=== PATIENT | female | born 1950 | race African-American/Black ===

== ENCOUNTER 2017-04-14 20:38 | Inpatient (IN) | payer MEDICARE ==
[~2017-04-14] VITALS: Ht 160 cm; Wt 68.9 kg
[~2017-04-14 20:38] MED LIST: ATOR40TA PO; CARV12.52 PO; INSU100I19 SQ; INSU100V11 SQ; LISI-607 PO
[2017-04-15] MEDS ORDERED: DEXAMETHASONE SOD PHOSPHATE 4 MG/ML VIAL IM ONE
--- NOTE | 2017-04-15 | NUR ---
PT C/O SORE THROAT X 3 HOURS FORMULA BOTTLER. PT AOX3 RR EVEN AND UNLABORED. NO SOB NOTED. NAD NOTED. NO NVD AT THIS TIME. PT GOWNED AND PLACED ON MONITOR WAITING FOR MD GRULLON
[2017-04-15 00:06] LABS: BASOPHILS % (AUTO) 0.4 % (0.0-2.0); EOSINOPHILS # (AUTO) 0.2 /CMM (0.0-0.7); EOSINOPHILS % (AUTO) 2.8 % (0.0-6.0); HEMATOCRIT 38 % (33-45); HEMOGLOBIN 12.7 g/dL (11.5-14.8); LYMPHOCYTES # (AUTO) 2.1 /CMM (0.8-4.8); LYMPHOCYTES % (AUTO) 24.9 % (20.0-44.0); MEAN CORPUSCULAR HEMOGLOBIN 32 PG (26.0-33.0); MEAN CORPUSCULAR HGB CONC 34 g/dl (31.0-36.0); MEAN CORPUSCULAR VOLUME 94 fL (82-100); MONOCYTES # (AUTO) 0.5 /CMM (0.1-1.30); MONOCYTES % (AUTO) 6.1 % (2.0-12.0); NEUTROPHILS # (AUTO) 5.8 /CMM (1.8-8.9); NEUTROPHILS % (AUTO) 65.8 % (43.0-81.0); PLATELET COUNT (AUTO) 265 /CMM (150-450); RDW COEFFICIENT OF VARIATION 12.1 (11.5-15.0); RED BLOOD CELL COUNT(AUTO) 4.02 MIL/uL (4.0-5.2); WHITE BLOOD COUNT (AUTO) 8.6 K/uL (4.3-11.0)
[2017-04-15 00:23] LABS: CALCIUM, SERUM 9.2 mg/dL (8.5-10.1); CREATININE 1.3 mg/dL (0.6-1.3); POTASSIUM 3.7 mmol/L (3.5-5.1)
[2017-04-15] MEDS ORDERED: DEXAMETHASONE SOD PHOSPHATE 10 MG/ML VIAL ONE (00:29)
[2017-04-15] MEDS ORDERED: CT SWABBABLE VALVE TRANS SET 1 EA INFUS.SET MC ONE (00:40)
[2017-04-15] MEDS ORDERED: IV NS 0.9% 250 ML IV ONE (00:40)
[2017-04-15] MEDS ORDERED: IOHEXOL-300 100 ML VIAL IV ONE (00:40)
--- NOTE | 2017-04-15 00:50 | NUR ---
PT TO CT.
--- NOTE | 2017-04-15 01:11 | NUR ---
PT RETURNED FROM CT.
--- NOTE | 2017-04-15 01:22 | NUR ---
Maribel alanis in [facility] - 04/15/[address] NORTH [phone]
--- NOTE | 2017-04-15 01:23 | NUR ---
MEENU. MARY ANNE [phone]
--- NOTE | 2017-04-15 01:49 | NUR ---
ISHA BURGER AT BEDSIDE SPEAKING TO PT REGARDING RESULTS
--- NOTE | 2017-04-15 01:59 | NUR ---
LAB AT BEDSIDE FOR BLOOD DRAW
[2017-04-15] MEDS ORDERED: CLINDAMYCIN IV RTU IN D5W 600 MG/50 ML PIGGYBACK IV ONE (02:00)
--- NOTE | 2017-04-15 02:00 | NUR ---
PANEL PAGED PER ER MD ORDER.
--- NOTE | 2017-04-15 02:01 | NUR ---
PT ASSIGNED TO 314-2
--- NOTE | 2017-04-15 02:01 | NUR ---
CALLED DAUGHTER, MARY ANNE TO BRING PT MEDICATION FROM HOME.
[2017-04-15] MEDS ORDERED: CLINDAMYCIN 900 MG/6 ML VIAL ONE (02:09)
[2017-04-15] MEDS ORDERED: *INSULIN REGULAR(HUMULIN R)HUM 100 UNIT/ML VIAL SQ PRN (02:30)
[2017-04-15] MEDS ORDERED: DEXTROSE 50%-WATER 50 ML DISP.SYRIN IV PRN (02:30)
[2017-04-15] MEDS ORDERED: HYDROCODONE/APAP 5/325MG 1 EACH TABLET PO PRN (02:30)
[2017-04-15] MEDS ORDERED: ZOLPIDEM TARTRATE 5 MG TABLET PO PRN (02:30)
[2017-04-15] MEDS ORDERED: ACETAMINOPHEN 325 MG TABLET PO PRN (02:30)
[2017-04-15] MEDS ORDERED: ONDANSETRON HCL/PF 4 MG/2 ML VIAL IVP PRN (02:30)
[2017-04-15] MEDS ORDERED: MAGNESIUM HYDROXIDE 30 ML UDC PO PRN (02:30)
[2017-04-15] MEDS ORDERED: MAG HYDROX/AL HYDROX/SIMETH 30 ML UDC PO PRN (02:30)
[2017-04-15] MEDS ORDERED: Z GUARD REMEDY 2 OZ OINT TP PRN (02:30)
--- NOTE | 2017-04-15 02:30 | NUR ---
PT REASSIGNED TO ICU PER PAYTON, CALLED RN SUP FOR BED
[2017-04-15] MEDS ORDERED: CEFTRIAXONE 1 G VIAL ONE (03:32)
--- NOTE | 2017-04-15 03:56 | NUR ---
REPORT GIVEN TO JAYDEN PRESCOTT FOR LG
--- NOTE | 2017-04-15 05:37 | NUR ---
Patient is resting comfortably in bed with eyes closed. Easily aroused. VSS
--- NOTE | 2017-04-15 07:15 | NUR ---
REPORT GIVEN TO JAYDEN ALANIZ FOR LG
--- NOTE | 2017-04-15 08:45 | NUR ---
REPORT GIVEN TO JAYDEN TAYLOR FOR [facility].
[2017-04-15] MEDS ORDERED: SIMV20TA6 PO (09:35)
--- NOTE | 2017-04-15 09:45 | NUR ---
[facility] RN NOTES ADMITTED THIS PATIENT, DX UVULITIS BY DR. CARRILLO. AAO X 3, ON RA, NO SOB, NOT IN DSITRESS, BREATHING EVEN AND UNLABORED, RAC G18 FLUSHES WELL, SITE CLEAR, TELEMETRY READS SR HR 60, DENIES PAIN. PATIENT WITH VITILIGO, GENERAL, OTHERWISE SKIN IS INTACT. CLEAR DIET, UNIT ORIENTATION DONE AND USE OF CALL LIGHT. SAFETY MEASURES IN PLACE, WILL CONTINUE TO MONITOR.
[2017-04-15 10:00] VITALS: BP 160/90
[2017-04-15] MEDS: DEXAMETHASONE SOD PHOSPHATE 10 MG/ML VIAL IV SCH ×2 (11:12→17:38)
[2017-04-15] MEDS: diphenhydrAMINE HCL 50 MG/ML VIAL IV SCH ×2 (11:12→17:37)
[2017-04-15] MEDS: BLOOD SUGAR DIAGNOSTIC 1 EACH STRIP VI SCH ×3 (11:13→21:51)
[2017-04-15] MEDS: INSULIN REGULAR, HUMAN 100 UNIT/ML 3 ML VIAL SQ PRN ×2 (11:38→16:51)
--- NOTE | 2017-04-15 11:42 | NUR ---
[facility] RN NOTES ACCUCHECK DONE. BS 279 MG/DL ADMINISTERED 9 UNITS HUM R PER SS.
[2017-04-15 12:00] VITALS: BP 157/100
[2017-04-15] MEDS: CEFTRIAXONE 1 G in IV D5W 50 ML IV SCH (12:37)
--- NOTE | 2017-04-15 12:37 | NUR ---
[facility] RN NOTES ROCEPHIN IV STARTED. NOT ADMINISTERED ON TIME, PT ARRIVED TO UNIT AT 100 AM AND MEDICATION JUST DELIVERED.
--- NOTE | 2017-04-15 14:05 | NUR ---
[facility] RN NOTES SEEN BY DR. HORTON.
[2017-04-15 16:00] VITALS: BP 139/84
--- NOTE | 2017-04-15 16:44 | NUR ---
[facility] RN NOTES ACCUCHECK DONE. BS 323 MG/DL ADMINISTERED 12 UNITS HUM R PER SS.
--- NOTE | 2017-04-15 19:02 | NUR ---
[facility] RN CLOSING NOTES PATIENT RESTING COMFORTABLY. NOT IN ANY DISTRESS, ROOM AIR. TELEMETRY READS SR HR 64. DENIES ANY DISCOMFORT. IV ACCESS RAC G 18 INTACT. ALL NEEDS MET. PM CARE RENDERED. CALL LIGHT WITHIN REACH, ALL NEEDS MET. NO OTHER SIGNIFICANT CHANGE IN CONDITION. WILL ENDORSE TO NEXT SHIFT FOR LG.
--- NOTE | 2017-04-15 19:41 | NUR ---
TD RN OPENING RECEIVED CARE OF PATIENT. PATIENT DENIES SOB, DIFFICULTY BREATHING OR PAIN AT THIS TIME. TOLERATING DIET WELL NO COMPLICATIONS NOTED. TELE NSR. PATIENT SITTING IN CHAIR APPEARS STABLE AT THIS TIME. ALL NEEDS IN REACH, BED LOWERED AND LOCKED, RAILS UPX3 FOR SAFETY AND WILL ROUND PRN NEEDED
[2017-04-15 20:00] VITALS: BP 166/81
[2017-04-15 20:31] VITALS: BP 152/85
[2017-04-16] VITALS: BP 133/61
[2017-04-16] MEDS: diphenhydrAMINE HCL 50 MG/ML VIAL IV SCH ×3 (00:13→12:38)
[2017-04-16] MEDS: DEXAMETHASONE SOD PHOSPHATE 10 MG/ML VIAL IV SCH ×3 (00:13→12:38)
[2017-04-16 04:00] VITALS: BP 136/71
--- NOTE | 2017-04-16 06:29 | NUR ---
TD RN CLOSING PATIENT STABLE NO COMPLICATIONS NOTED. ALL DUE MEDS GIVEN AND ALL NEEDS MET. CARE WILL BE ENDORSED TO RN FOR LG. PATIENT NEEDS IN REACH. BED LOWERED AND LOCKED, RAIL SUPX3 FOR SAFETY TELE NSR
--- NOTE | 2017-04-16 07:30 | NUR ---
[facility] RN NOTES RECEIVED PATIENT IN BED, AAO X 3, ON RA, NO SOB, NOT IN DISTRESS, BREATHING EVEN AND UNLABORED, RAC G18 FLUSHES WELL, SITE CLEAR, TELEMETRY READS SR HR 65, DENIES PAIN. PATIENT WITH VITILIGO, GENERAL, OTHERWISE SKIN IS INTACT. CLEAR DIET, CALL LIGHT WITHIN REACH. SAFETY MEASURES IN PLACE, WILL CONTINUE TO MONITOR. Addendum: 04/16/17 at 1349 by BRANDON KEYES RN ADDENDUM MS RN NOTES ACCUCHECK DONE BS 230 MG/DL. ADMINISTERED 6 UNITS HUM R PER SS
[2017-04-16 07:34] LABS: HEMATOCRIT 36 % (33-45); HEMOGLOBIN 12.3 g/dL (11.5-14.8); LYMPHOCYTES # (AUTO) 1.1 /CMM (0.8-4.8); LYMPHOCYTES % (AUTO) 5.8 % (20.0-44.0); MEAN CORPUSCULAR HEMOGLOBIN 33 PG (26.0-33.0); MEAN CORPUSCULAR HGB CONC 34 g/dl (31.0-36.0); MEAN CORPUSCULAR VOLUME 97 fL (82-100); MONOCYTES # (AUTO) 0.4 /CMM (0.1-1.30); MONOCYTES % (AUTO) 2.1 % (2.0-12.0); NEUTROPHILS # (AUTO) 17.3 /CMM (1.8-8.9); NEUTROPHILS % (AUTO) 92.1 % (43.0-81.0); PLATELET COUNT (AUTO) 230 /CMM (150-450); RED BLOOD CELL COUNT(AUTO) 3.73 MIL/uL (4.0-5.2); WHITE BLOOD COUNT (AUTO) 18.8 K/uL (4.3-11.0)
[2017-04-16 08:00] VITALS: BP 167/81
[2017-04-16] MEDS: BLOOD SUGAR DIAGNOSTIC 1 EACH STRIP VI SCH ×2 (08:28→12:32)
[2017-04-16 08:33] LABS: CALCIUM, SERUM 9.4 mg/dL (8.5-10.1); CREATININE 1.2 mg/dL (0.6-1.3); MAGNESIUM 2.1 mg/dL (1.8-2.4); PHOSPHORUS 2.8 mg/dL (2.5-4.9); POTASSIUM 4.2 mmol/L (3.5-5.1)
[2017-04-16] MEDS: INSULIN REGULAR, HUMAN 100 UNIT/ML 3 ML VIAL SQ PRN ×2 (08:38→12:48)
[2017-04-16] MEDS: CEFTRIAXONE 1 G in IV D5W 50 ML IV SCH (08:38)
--- NOTE | 2017-04-16 09:30 | NUR ---
[facility] NOTES DUE MEDS GIVEN.
--- NOTE | 2017-04-16 12:48 | NUR ---
MS RN NOTES ACCUCHECK DONE BS 279 MG/DL. ADMINISTERED 9 UNITS HUM R PER SS
[2017-04-16] MEDS ORDERED: METH4TAB3 PO (12:52)
--- NOTE | 2017-04-16 14:58 | NUR ---
JOURNEYMAN MEAT CUTTER NOTES PATIENT DISCHARGED TO HOME PER MD IN STABLE CONDITION. PROVIDED DC INSTRUCTIONS, MED RECON LIST/PRESCRIPTION AND HEALTH TEACHINGS. PT TO FOLLOW UP WITH PCP IN 1-2 WEEKS. IV ACCESS TO RT AC REMOVED, NO BLEEDING, DRESSING IN PLACE. ALL BELONGINGS CHECKED AND RETURNED ALL PAPER WORKS SIGNED. PATIENT TO GO HOME VIA PRIVATE CAR BY SON.
== END 2017-04-16 15:03 | disposition home or self-care (01) | DRG 159 ==
LOC: ER 20:43 → TELE-TD 04-15 02:23 → UNDOADMIN 04-15 02:23 → TELE 04-15 02:23 → ICU 04-15 03:14 → TELE 04-15 03:14 → ICU 04-15 06:08 → TRANSITION 04-15 06:33 → TELE-TD 04-15 09:00 → MEDSG1 04-16 11:45
PROVIDERS: ADMIT Internal Medicine; ATTEND Internal Medicine
DX: K12.2 Cellulitis and abscess of mouth (principal); E11.9 Type 2 diabetes mellitus without complications; E78.5 Hyperlipidemia, unspecified; I10 Essential (primary) hypertension; Z86.73 Personal history of transient ischemic attack (TIA), and cerebral infarction without residual deficits; R60.9 Edema, unspecified; Z79.4 Long term (current) use of insulin
CPT/HCPCS: 36415; 70491-TC; 80048-TC; 82962-TC; 83735-TC; 84100-TC; 85025-TC; 87040-TC; 87081-TC; A4216; A4606; A6402; J0696; J1100; J1200; J1815; J3490; J7050; J7060; Q9967; Z7610

== ENCOUNTER 2018-05-18 11:50 | Emergency (ER) | payer MEDICARE ==
[~2018-05-18] VITALS: Ht 157.5 cm; Wt 63.0 kg
[~2018-05-18 11:50] MED LIST changes: -ATOR40TA PO; -LISI-607 PO; +METH4TAB3 PO; +SIMV20TA6 PO
--- NOTE | 2018-05-18 11:50 | NUR ---
PT BIB FAMILY C/O DIFFICULTY SWALLOWING AND HOARSE VOICE X 2-3 DAYS, PT IS AAOX2, NOT IN RESPIRATORY DISTRESS, V/S STABLE, KEPT RESTED AND COMFORTABLE. WAITING ER MD FOR EVAL.
--- NOTE | 2018-05-18 12:16 | NUR ---
SEEN AND EXAMINED BY DR. SHELDON.
[2018-05-18] MEDS ORDERED: IV NS 0.9% 1,000 ML BAG IV ONE ×2 (12:30→14:30)
--- NOTE | 2018-05-18 12:35 | NUR ---
LABS DRAWNED AND SENT TO LAB. AWAITING RESULTS.
[2018-05-18 12:42] LABS: BASOPHILS % (AUTO) 0.4 % (0.0-2.0); EOSINOPHILS % (AUTO) 1.6 % (0.0-6.0); HEMATOCRIT 44 % (33-45); HEMOGLOBIN 14.4 g/dL (11.5-14.8); LYMPHOCYTES # (AUTO) 1.7 /CMM (0.8-4.8); LYMPHOCYTES % (AUTO) 21.1 % (20.0-44.0); MEAN CORPUSCULAR HGB CONC 33 g/dl (31.0-36.0); MEAN CORPUSCULAR VOLUME 99 fL (82-100); MONOCYTES # (AUTO) 0.4 /CMM (0.1-1.30); MONOCYTES % (AUTO) 4.5 % (2.0-12.0); NEUTROPHILS # (AUTO) 5.9 /CMM (1.8-8.9); NEUTROPHILS % (AUTO) 72.4 % (43.0-81.0); PLATELET COUNT (AUTO) 199 /CMM (150-450); RED BLOOD CELL COUNT(AUTO) 4.43 MIL/uL (4.0-5.2); WHITE BLOOD COUNT (AUTO) 8.2 K/uL (4.3-11.0)
--- NOTE | 2018-05-18 12:47 | NUR ---
URINE SPECIMEN COLLECTED AND SENT TO LAB.
--- NOTE | 2018-05-18 12:47 | NUR ---
RADIOLOGY AT BEDSIDE FOR XRAY.
[2018-05-18 12:49] LABS: APPEARANCE,URINE Clear (CLEAR); BILIRUBIN,URINE Negative (NEGATIVE); BLOOD, URINE Negative Ery/uL (NEGATIVE); COLOR,URINE Yellow (YELLOW); KETONES,URINE 15 (NEGATIVE); LEUKOCYTE ESTERASE ,URINE Negative (NEGATIVE); NITRITE, URINE Negative (NEGATIVE); PROTEIN,URINE Trace mg/dl (NEGATIVE); UGLUCOSE >=1000 mg/dL (NEGATIVE); UROBILINOGEN,URINE 0.2 EU/dL (0.2)
[2018-05-18 13:01] LABS: ALANINE AMINOTRANSFERASE 28 U/L (12-78); ALBUMIN 3.9 g/dL (3.4-5.0); ALKALINE PHOSPHATASE 165 U/L (46-116); ASPARTATE AMINOTRANSFERASE 21 U/L (15-37); BILIRUBIN,DIRECT 0.2 mg/dL (0.0-0.2); BILIRUBIN,TOTAL 0.9 mg/dL (0.2-1.0); CALCIUM, SERUM 9.8 mg/dL (8.5-10.1); CARBON DIOXIDE 27 mmol/L (21-32); CHLORIDE 94 mmol/L (98-107); CREATININE 2.1 mg/dL (0.6-1.3); POTASSIUM 5.2 mmol/L (3.5-5.1); SODIUM SERUM 129 mmol/L (136-145); TOTAL PROTEIN, SERUM 8.1 g/dL (6.4-8.2); UREA NITROGEN, BLOOD 38 mg/dL (7-18)
[2018-05-18 13:03] LABS: GLUCOSE 640 mg/dL (74-106)
[2018-05-18 13:04] LABS: BACTERIA,URINE Moderate /HPF (None Seen); RBC,URINE 0-2 /HPF (0-2); SQUAMOUS EPITHELIAL CELL,UR Moderate /HPF (None Seen)
--- NOTE | 2018-05-18 13:16 | NUR ---
PT IS WHEELED TO CT SCAN VIA [facility].
[2018-05-18] MEDS ORDERED: INSULIN REGULAR, HUMAN 100 UNIT/ML 10 ML VIAL IV ONE ×2 (13:30→15:00)
[2018-05-18] MEDS ORDERED: INSULIN REGULAR, HUMAN 100 UNIT/ML 10 ML VIAL ONE (13:33)
--- NOTE | 2018-05-18 16:29 | NUR ---
REPEAT ACCUCHECK 232 DR. ACOSTA AWARE.
--- NOTE | 2018-05-18 16:29 | NUR ---
IV removed. Catheter intact and site benign. Pressure and 4x4 applied to site. No bleeding noted. Patient discharged to home in stable condition. Written and verbal after care instructions given. Patient verbalizes understanding of instruction.
[2018-05-18 16:31] VITALS: BP 118/80
== END 2018-05-18 16:32 | disposition home or self-care (01) ==
LOC: ER 11:51
DX: E11.65 Type 2 diabetes mellitus with hyperglycemia (principal); N28.9 Disorder of kidney and ureter, unspecified; E78.00 Pure hypercholesterolemia, unspecified; I10 Essential (primary) hypertension; E78.5 Hyperlipidemia, unspecified; F17.200 Nicotine dependence, unspecified, uncomplicated; R51 Headache; Z86.73 Personal history of transient ischemic attack (TIA), and cerebral infarction without residual deficits; Z79.4 Long term (current) use of insulin
CPT/HCPCS: 36415; 70450-TC; 70490-TC; 71045-TC; 80048-TC; 80076-TC; 81000-TC; 82962-TC; 84484-TC; 85025-TC; 85730-TC; 86403-TC; 87070-TC; 87086-TC; J1815; J7030

== ENCOUNTER 2019-05-26 19:52 | Emergency (ER) | payer SELFPAY ==
[~2019-05-26] VITALS: Ht 157.5 cm; Wt 65.8 kg
[~2019-05-26 19:52] MED LIST changes: +SIMV-46 PO; -SIMV20TA6 PO
--- NOTE | 2019-05-26 20:05 | NUR ---
PT BIBS. HYPERGLYCEMIA 530 NON COMPLIANT WITH MEDS. PT AAOX4, VSS, TRISH CUITE DISTRESS NOTED AND NO COMPLAINTS AT THIS TIME. CONNECTED TO THE MONITOR AND POX
[2019-05-26] MEDS ORDERED: INSULIN REGULAR, HUMAN 100 UNIT/ML 10 ML VIAL ONE ×2 (20:27→23:55)
[2019-05-26] MEDS ORDERED: IV NS 0.9% 1,000 ML BAG IV ONE ×2 (20:30→21:30)
[2019-05-26] MEDS ORDERED: INSULIN REGULAR, HUMAN 100 UNIT/ML 10 ML VIAL SQ ONE (20:30)
[2019-05-26 20:39] LABS: BILIRUBIN,URINE Negative (NEGATIVE); BLOOD, URINE Negative Ery/uL (NEGATIVE); COLOR,URINE Yellow (YELLOW); KETONES,URINE Negative (NEGATIVE); LEUKOCYTE ESTERASE ,URINE Negative (NEGATIVE); NITRITE, URINE Negative (NEGATIVE); PROTEIN,URINE Trace mg/dl (NEGATIVE); UGLUCOSE 500 MG/DL mg/dL (NEGATIVE); UROBILINOGEN,URINE 0.2 EU/dL (0.2)
[2019-05-26 20:42] LABS: APPEARANCE,URINE SLIGHTLY HAZY (CLEAR)
[2019-05-26 20:45] LABS: BASOPHILS % (AUTO) 0.5 % (0.0-2.0); EOSINOPHILS % (AUTO) 1.4 % (0.0-6.0); HEMATOCRIT 44 % (33-45); HEMOGLOBIN 14.3 g/dL (11.5-14.8); LYMPHOCYTES # (AUTO) 2.7 /CMM (0.8-4.8); LYMPHOCYTES % (AUTO) 28.3 % (20.0-44.0); MEAN CORPUSCULAR HGB CONC 33 g/dl (31.0-36.0); MEAN CORPUSCULAR VOLUME 96 fL (82-100); MONOCYTES # (AUTO) 0.5 /CMM (0.1-1.30); MONOCYTES % (AUTO) 5.3 % (2.0-12.0); NEUTROPHILS % (AUTO) 64.5 % (43.0-81.0); PLATELET COUNT (AUTO) 259 /CMM (150-450); RED BLOOD CELL COUNT(AUTO) 4.56 MIL/uL (4.0-5.2); WHITE BLOOD COUNT (AUTO) 9.4 K/uL (4.3-11.0)
[2019-05-26 20:49] LABS: SQUAMOUS EPITHELIAL CELL,UR Moderate /HPF (None Seen)
[2019-05-26 20:50] LABS: BACTERIA,URINE Moderate /HPF (None Seen)
[2019-05-26 20:51] LABS: RBC,URINE 0-2 /HPF (0-2); YEAST,URINE Few /HPF (None Seen)
[2019-05-26 21:06] LABS: CALCIUM, SERUM 9.9 mg/dL (8.5-10.1); CREATININE 2.3 mg/dL (0.6-1.3); POTASSIUM 4.5 mmol/L (3.5-5.1)
[2019-05-27] MEDS ORDERED: INSULIN REGULAR, HUMAN 100 UNIT/ML 10 ML VIAL IV ONE
--- NOTE | 2019-05-27 | NUR ---
BS SUGAR RECHECK AFTER 2L FLUIDS. 471 BS. MADE AWARE
--- NOTE | 2019-05-27 00:44 | NUR ---
IV removed. Catheter intact and site benign. Pressure and 4x4 applied to site. No bleeding noted.Patient discharged to home in stable condition. Written and verbal after care instructions given. Patient verbalizes understanding of instruction.
[2019-05-27 00:46] VITALS: BP 121/84
== END 2019-05-27 00:46 | disposition home or self-care (01) ==
LOC: ER 19:54
DX: E11.65 Type 2 diabetes mellitus with hyperglycemia (principal); E86.0 Dehydration; F03.90 Unspecified dementia, unspecified severity, without behavioral disturbance, psychotic disturbance, mood disturbance, and anxiety; I10 Essential (primary) hypertension; E78.5 Hyperlipidemia, unspecified; F17.200 Nicotine dependence, unspecified, uncomplicated; Z79.4 Long term (current) use of insulin; Z79.899 Other long term (current) drug therapy; Z86.73 Personal history of transient ischemic attack (TIA), and cerebral infarction without residual deficits
CPT/HCPCS: 36415; 80048; 81001; 82962 ×3; 85025; 87086; 96361; 96372; 96374; 99284; J1815 ×2; J7030 ×2; 81000-TC

== ENCOUNTER 2021-11-14 14:41 | Emergency (ER) | payer MEDICARE, OTHER ==
[~2021-11-14] VITALS: Ht 154.9 cm; Wt 55.3 kg
[2021-11-14] MEDS ORDERED: IV NS 0.9% 1,000 ML BAG IV ONE (15:30)
--- NOTE | 2021-11-14 16:30 | NUR ---
SS Note: DAREN met with pt. at bedside for safe discharge planing. Pt. mcmillan hx. of Dementia per MD. Patient could not provide another contact who may be able to pick her up. DAREN called the the patient's Myla peterson [phone] but no answer or voicemail option. DAREN provided missing person number [phone] to Esther mcneill who will call in attempts to locate family. DAREN discussed with Betito GUDINO.
--- NOTE | 2021-11-14 16:35 | NUR ---
MISSING PERSON REPORT [phone]
--- NOTE | 2021-11-14 16:45 | NUR ---
CALLED MISSING PERSONS HOTLINE GAVE DESCRIPTION, PER CONE CHOCOLATE DIPPER PATIENT IS NOT MISSING PERSON
--- NOTE | 2021-11-14 17:31 | NUR ---
URINE COLLECTED AND SENT TO THE LAB
--- NOTE | 2021-11-14 19:15 | NUR ---
RECEIVED REPORT FROM JAYDEN BRUNSON. PATIENT IN ROOM, AAOX3. PATIENT IS AMBULATING INSIDE THE ROOM. DINNER SERVED. VITALS CHECKED. -CP, -SOB.
[2021-11-14 19:42] LABS: BILIRUBIN,URINE NEGATIVE (NEGATIVE); COLOR,URINE YELLOW (YELLOW); LEUKOCYTE ESTERASE ,URINE NEGATIVE (NEGATIVE); NITRITE, URINE NEGATIVE (NEGATIVE); PROTEIN,URINE TRACE mg/dl (NEGATIVE); UGLUCOSE NEGATIVE (NEGATIVE)
[2021-11-14 19:44] LABS: ALBUMIN 4.1 g/dL (3.4-5.0); BILIRUBIN,DIRECT 0.2 mg/dL (0.0-0.2); BILIRUBIN,TOTAL 0.8 mg/dL (0.2-1.0); CALCIUM, SERUM 9.6 mg/dL (8.5-10.1); CREATININE 1.1 mg/dL (0.6-1.3); POTASSIUM 3.7 mmol/L (3.5-5.1); TOTAL PROTEIN, SERUM 8.7 g/dL (6.4-8.2)
--- NOTE | 2021-11-14 19:45 | NUR ---
PATIENT BEEN ASKING FOR MED REFILL. EXPLAINED TO HER THAT WE ARE WAITING FOR THE RESULTS AND DOCTOR WILL PRESCRIBE MEDS NEEDED.
[2021-11-14 19:55] LABS: BASOPHILS % (AUTO) 0.9 % (0.0-2.0); EOSINOPHILS % (AUTO) 4.4 % (0.0-6.0); HEMATOCRIT 41 % (33-45); HEMOGLOBIN 13.4 g/dL (11.5-14.8); LYMPHOCYTES # (AUTO) 2.2 K/uL (0.8-4.8); LYMPHOCYTES % (AUTO) 39.6 % (20.0-44.0); MEAN CORPUSCULAR HGB CONC 33 g/dl (31.0-36.0); MEAN CORPUSCULAR VOLUME 95 fL (82-100); MONOCYTES # (AUTO) 0.3 K/uL (0.1-1.30); MONOCYTES % (AUTO) 4.7 % (2.0-12.0); NEUTROPHILS # (AUTO) 2.7 K/uL (1.8-8.9); NEUTROPHILS % (AUTO) 50.4 % (43.0-81.0); PLATELET COUNT (AUTO) 247 K/uL (150-450); RED BLOOD CELL COUNT(AUTO) 4.31 MIL/uL (4.0-5.2); WHITE BLOOD COUNT (AUTO) 5.4 K/uL (4.3-11.0)
[2021-11-14 19:59] LABS: BACTERIA,URINE None seen /HPF (None Seen); RBC,URINE 0-2 /HPF (0-2); SQUAMOUS EPITHELIAL CELL,UR 0-2 /HPF (None Seen); URINE AMORPHOUS PHOSPHATES Few /HPF (None Seen); WBC,URINE 0-2 /HPF (0-3)
--- NOTE | 2021-11-14 20:05 | NUR ---
PATIENT HAS BEEN INPATIENT. EXPLAINED THAT RESULT IS NOT YET OUT. ASKED HER TO GO BACK TO HER ROOM AND WE WILL GIVE HER UPDATE SOON POSSIBLE
--- NOTE | 2021-11-14 20:15 | NUR ---
Note annabelle in ED - 11/14/21 at 2056 by [email or web address] PATIENT IS NOT IN THE ROOM. STAFF BEEN LOOKING FOR HER. DR ACOSTA MADE AWARE. WE WILL BE CALLING PD TO REPORT MISSING PERSON.
--- NOTE | 2021-11-14 20:45 | NUR ---
PATIENT IS NOT IN THE ROOM. STAFF LOOKING AT HER IN THE WHOLE DEPT AND BATHROOM EVEN OUTSIDE HOSPITAL. DR ACOSTA AWARE THAT PATIENT IS GONE. SHE ASKED TO CONTACT PD AND REPORT MISSING PERSON.
--- NOTE | 2021-11-14 20:48 | NUR ---
PD CONTACTED BY PIETER VAUGHAN. DESCRIPTION GIVEN TO PD.
--- NOTE | 2021-11-14 21:02 | NUR ---
ATTEMPTED TO CONTACT PD TO REPORT ELOPEMENT. WAITING FOR 20 MINUTES ON HOLD. WILL CALL BACK TO JUS UP.
--- NOTE | 2021-11-14 21:15 | NUR ---
PT CAME BACK. PER PATIENT, SHE WENT HOME BECAUSE SHE WAITED LONG ENOUGH. WHEN ASKED WHO WAS AT HOME. SHE SAID HER DAUGHTER WAS THERE. TRYING TO CALL HER DAUGHTER LUIS MANUEL, NOT PICKING UP.
--- NOTE | 2021-11-15 00:30 | NUR ---
EXPLAINED TO PATIENT THAT SHE NEEDS TO BE IN BED AND TRY TO SLEEP. SHE WILL NOT BE DISCHARGE THIS EVENING UNLESS THERE IS A FAMILY MEMBER WHO CAN PICK HER UP. OR ELSE, WE WILL WAIT FOR SW IN MORNING TO GG UP DISCHARGE PLAN
--- NOTE | 2021-11-15 06:27 | NUR ---
PATIENT IS ASLEEP BUT AROUSABLE. ALL NEEDS MET.
--- NOTE | 2021-11-15 06:30 | NUR ---
TRIED CALLING DAUGHTER TOMER, NOT PICKING UP THE PHONE.
--- NOTE | 2021-11-15 07:15 | NUR ---
RECIVED PT FROM OCTOBER SITTING UP ON [employer] WATING FOR FAMILY TO PICK HERE UP
[2021-11-15 07:45] VITALS: BP 129/88
--- NOTE | 2021-11-15 08:53 | NUR ---
CALLED PATIENTS NUMBER ON FILE. PATIENT DID ANSWER THE HOME AND STATES SHE IS AT HOME AND IS OK. WILL CALL [employer] FOR TO CHECK ON HER.
--- NOTE | 2021-11-15 08:56 | NUR ---
CALLED [employer] NON EMERGENT LINE DUE TO THE PT ELOPING. SPOKE TO [employer] [address] AND WAS GIVEN PT CLINICALS AND WAS GIVEN PT ADDRESS
== END 2021-11-15 09:02 | disposition left against medical advice (07) ==
LOC: ER 14:55
DX: F03.90 Unspecified dementia, unspecified severity, without behavioral disturbance, psychotic disturbance, mood disturbance, and anxiety (principal); I10 Essential (primary) hypertension; E11.9 Type 2 diabetes mellitus without complications; E78.5 Hyperlipidemia, unspecified; F17.200 Nicotine dependence, unspecified, uncomplicated; Z79.4 Long term (current) use of insulin; Z79.899 Other long term (current) drug therapy
CPT/HCPCS: 99285; 96360; 71045; 93005; 85025; 80048; 83690; 80076; 81001; 36415; 82962; J7030

== ENCOUNTER 2023-02-18 15:57 | Emergency (ER) | payer SELFPAY ==
[~2023-02-18] VITALS: Ht 157.5 cm; Wt 53.1 kg
[2023-02-18] MEDS ORDERED: CT SWABBABLE VALVE TRANS SET 1 EA INFUS.SET MC ONE (16:16)
[2023-02-18] MEDS ORDERED: IOHEXOL-350 100 ML VIAL IV ONE (16:16)
[2023-02-18] MEDS ORDERED: IV NS 0.9% 250 ML IV ONE (16:17)
[2023-02-18 16:20] LABS: BASOPHILS % (AUTO) 0.3 % (0.0-2.0); EOSINOPHILS # (AUTO) 0.2 K/uL (0.0-0.7); HEMATOCRIT 38 % (33-45); HEMOGLOBIN 12.3 g/dL (11.5-14.8); LYMPHOCYTES # (AUTO) 1.7 K/uL (0.8-4.8); LYMPHOCYTES % (AUTO) 24.5 % (20.0-44.0); MEAN CORPUSCULAR HEMOGLOBIN 31 PG (26.0-33.0); MEAN CORPUSCULAR HGB CONC 33 g/dl (31.0-36.0); MEAN CORPUSCULAR VOLUME 96 fL (82-100); MONOCYTES # (AUTO) 0.4 K/uL (0.1-1.30); MONOCYTES % (AUTO) 5.2 % (2.0-12.0); NEUTROPHILS # (AUTO) 4.7 K/uL (1.8-8.9); PLATELET COUNT (AUTO) 218 K/uL (150-450); RED BLOOD CELL COUNT(AUTO) 3.93 MIL/uL (4.0-5.2); RED CELL DISTRIBUTION WIDTH 13.8 % (11.5-15.0); WHITE BLOOD COUNT (AUTO) 7.1 K/uL (4.3-11.0)
[2023-02-18 16:35] LABS: CALCIUM, SERUM 9.8 mg/dL (8.5-10.1); CARBON DIOXIDE 28 mmol/L (21-32); CHLORIDE 105 mmol/L (98-107); CREATININE 1.8 mg/dL (0.6-1.3); GLUCOSE 147 mg/dL (74-106); INR 1.15 (0.91-1.10); PARTIAL THROMBOPLASTIN TIME 24.8 SEC (24.3-34.3); POTASSIUM 4.4 mmol/L (3.5-5.1); PROTHROMBIN TIME 12.1 SECS (9.2-11.1); SODIUM SERUM 141 mmol/L (136-145); UREA NITROGEN, BLOOD 27 mg/dL (7-18)
[2023-02-18] MEDS ORDERED: ASPIRIN 325 MG TABLET ONE (18:04)
[2023-02-18] MEDS: IV NS 0.9% 1,000 ML BAG IV ONE (18:24)
[2023-02-18] MEDS: ASPIRIN 325 MG TABLET PO ONE (18:24)
[2023-02-18 20:48] VITALS: BP 181/105; TEMP 98; O2SAT 97
== END 2023-02-18 21:39 | disposition left against medical advice (07) ==
LOC: ER 16:10
DX: R41.82 Altered mental status, unspecified (principal); R53.1 Weakness; I10 Essential (primary) hypertension; E11.9 Type 2 diabetes mellitus without complications; E78.5 Hyperlipidemia, unspecified; F17.200 Nicotine dependence, unspecified, uncomplicated
CPT/HCPCS: 99285; 70498; 96360; 93005; 70496; 85025; 80048; 36415; 84484; 85730; 82962; 70450; J7030; J7050; Q9967

== ENCOUNTER 2023-03-01 21:01 | Inpatient (IN) | payer MEDICARE ==
[~2023-03-01] VITALS: Ht 160 cm; Wt 51.7 kg
[2023-03-01] MEDS ORDERED: CEFEPIME 1 GM VIAL ONE (21:27)
[2023-03-01] MEDS ORDERED: ONDANSETRON HCL/PF 4 MG/2 ML VIAL ONE (21:27)
[2023-03-01] MEDS ORDERED: ACETAMINOPHEN 650 MG/SUPP.RECT RC ONE ×2 (21:28→21:30)
[2023-03-01] MEDS ORDERED: ONDANSETRON HCL/PF - ER 4 MG/2 ML VIAL IV ONE (21:30)
[2023-03-01] MEDS ORDERED: CEFEPIME 1 GM in IV D5W 50 ML IV ONE (21:30)
[2023-03-01] MEDS ORDERED: IV NS 0.9% 1,000 ML BAG IV ONE (21:30)
[2023-03-01] MEDS ORDERED: VANCOMYCIN 1 GM in IV D5W 250 ML IV ONE (21:30)
[2023-03-01 21:44] LABS: BASOPHILS % (AUTO) 0.1 % (0.0-2.0); HEMATOCRIT 38 % (33-45); HEMOGLOBIN 12.7 g/dL (11.5-14.8); LYMPHOCYTES # (AUTO) 0.4 K/uL (0.8-4.8); LYMPHOCYTES % (AUTO) 4.7 % (20.0-44.0); MEAN CORPUSCULAR HEMOGLOBIN 32 PG (26.0-33.0); MEAN CORPUSCULAR HGB CONC 33 g/dl (31.0-36.0); MEAN CORPUSCULAR VOLUME 96 fL (82-100); MONOCYTES # (AUTO) 0.7 K/uL (0.1-1.30); MONOCYTES % (AUTO) 7.5 % (2.0-12.0); NEUTROPHILS # (AUTO) 8.1 K/uL (1.8-8.9); NEUTROPHILS % (AUTO) 87.7 % (43.0-81.0); PLATELET COUNT (AUTO) 237 K/uL (150-450); RED BLOOD CELL COUNT(AUTO) 3.97 MIL/uL (4.0-5.2); RED CELL DISTRIBUTION WIDTH 13.8 % (11.5-15.0); WHITE BLOOD COUNT (AUTO) 9.2 K/uL (4.3-11.0)
[2023-03-01] MEDS ORDERED: VANCOMYCIN 1 GM /D5W 250 ML PB IV ONE (21:58)
[2023-03-01 22:01] LABS: LACTIC ACID 1.7 mmol/L (0.4-2.0)
[2023-03-01 22:05] LABS: INR 1.2 (0.91-1.10); PARTIAL THROMBOPLASTIN TIME 34.6 SEC (24.3-34.3); PROTHROMBIN TIME 12.6 SECS (9.2-11.1)
[2023-03-01 22:07] LABS: CALCIUM, SERUM 10.6 mg/dL (8.5-10.1); CARBON DIOXIDE 27 mmol/L (21-32); CHLORIDE 106 mmol/L (98-107); CREATININE 2.5 mg/dL (0.6-1.3); GLUCOSE 185 mg/dL (74-106); SODIUM SERUM 143 mmol/L (136-145); UREA NITROGEN, BLOOD 74 mg/dL (7-18)
[2023-03-01 22:12] LABS: ALANINE AMINOTRANSFERASE 28 U/L (12-78); ALBUMIN 2.9 g/dL (3.4-5.0); ALKALINE PHOSPHATASE 104 U/L (46-116); ASPARTATE AMINOTRANSFERASE 37 U/L (15-37); BILIRUBIN,DIRECT 1.2 mg/dL (0.0-0.2); BILIRUBIN,TOTAL 2.2 mg/dL (0.2-1.0); TOTAL PROTEIN, SERUM 9.1 g/dL (6.4-8.2)
[2023-03-01 22:20] LABS: THYROID STIMULATING HORMONE 0.622 uIU/mL (0.358-3.74)
[2023-03-01 22:21] LABS: MAGNESIUM 3.3 mg/dL (1.8-2.4)
[2023-03-01 22:31] LABS: APPEARANCE,URINE CLEAR (CLEAR); BILIRUBIN,URINE NEGATIVE (NEGATIVE); BLOOD, URINE 2+ Ery/uL (NEGATIVE); COLOR,URINE DARK YELLOW (YELLOW); KETONES,URINE TRACE mg/dL (NEGATIVE); LEUKOCYTE ESTERASE ,URINE NEGATIVE (NEGATIVE); NITRITE, URINE NEGATIVE (NEGATIVE); PH,URINE 5.5 (5.0-8.0); PROTEIN,URINE 2+ mg/dl (NEGATIVE); UGLUCOSE NEGATIVE (NEGATIVE)
[2023-03-01 22:36] LABS: WBC,URINE 0-2 /HPF (0-3)
[2023-03-01 22:37] LABS: ADD URINE CULTURE NO; BACTERIA,URINE Rare /HPF (None Seen); FINE GRANULAR CASTS,URINE Few /LPF (None Seen); SQUAMOUS EPITHELIAL CELL,UR Moderate /HPF (None Seen); URINE AMORPHOUS URATE Few /HPF (None Seen)
[2023-03-01] MEDS ORDERED: IOHEXOL-350 100 ML VIAL IV ONE (22:52)
[2023-03-01] MEDS ORDERED: CT SWABBABLE VALVE TRANS SET 1 EA INFUS.SET MC ONE (22:52)
[2023-03-01] MEDS ORDERED: IV NS 0.9% 250 ML IV ONE (22:53)
[2023-03-01] MEDS ORDERED: MORPHINE SULFATE INJ 2 MG/ML DISP.SYRIN IV PRN (23:30)
[2023-03-01] MEDS ORDERED: ACETAMINOPHEN 325 MG TABLET PO PRN (23:30)
[2023-03-01] MEDS ORDERED: Z GUARD REMEDY 4 OZ OINT TP PRN (23:30)
[2023-03-01] MEDS ORDERED: DEXTROSE 50%-WATER 50 ML DISP.SYRIN IV PRN (23:30)
[2023-03-01] MEDS ORDERED: ZOLPIDEM TARTRATE 5 MG TABLET PO PRN (23:30)
[2023-03-01] MEDS ORDERED: ONDANSETRON HCL/PF 4 MG/2 ML VIAL IVP PRN (23:30)
[2023-03-01] MEDS ORDERED: IV NS 0.9% 1,000 ML IV PRN (23:30)
[2023-03-02] MEDS: INSULIN REGULAR, HUMAN 100 UNIT/ML 3 ML VIAL SQ PRN ×2 (01:56→06:52)
[2023-03-02] MEDS: BLOOD SUGAR DIAGNOSTIC 1 EACH STRIP IN SCH ×2 (01:56→06:00)
[2023-03-02 04:00] VITALS: BP 148/91; TEMP 96.8; O2SAT 100
[2023-03-02 06:34] LABS: BASOPHILS % (AUTO) 0.1 % (0.0-2.0); HEMATOCRIT 42 % (33-45); HEMOGLOBIN 13.3 g/dL (11.5-14.8); LYMPHOCYTES # (AUTO) 0.6 K/uL (0.8-4.8); LYMPHOCYTES % (AUTO) 10.6 % (20.0-44.0); MEAN CORPUSCULAR HEMOGLOBIN 32 PG (26.0-33.0); MEAN CORPUSCULAR HGB CONC 32 g/dl (31.0-36.0); MEAN CORPUSCULAR VOLUME 100 fL (82-100); MONOCYTES # (AUTO) 0.3 K/uL (0.1-1.30); NEUTROPHILS # (AUTO) 4.7 K/uL (1.8-8.9); NEUTROPHILS % (AUTO) 84.3 % (43.0-81.0); PLATELET COUNT (AUTO) 192 K/uL (150-450); RED BLOOD CELL COUNT(AUTO) 4.18 MIL/uL (4.0-5.2); RED CELL DISTRIBUTION WIDTH 14.4 % (11.5-15.0); WHITE BLOOD COUNT (AUTO) 5.5 K/uL (4.3-11.0)
[2023-03-02 07:00] LABS: CARBON DIOXIDE 17 mmol/L (21-32); CHLORIDE 109 mmol/L (98-107); CREATININE 1.9 mg/dL (0.6-1.3); GLUCOSE 148 mg/dL (74-106); MAGNESIUM 3.5 mg/dL (1.8-2.4); PHOSPHORUS 4.7 mg/dL (2.5-4.9); POTASSIUM 4.9 mmol/L (3.5-5.1); SODIUM SERUM 139 mmol/L (136-145); UREA NITROGEN, BLOOD 69 mg/dL (7-18)
[2023-03-02 07:19] LABS: CHOLESTEROL 4 mg/dL (<200); HDL CHOLESTEROL 29 mg/dL (40-60); LDL 72 mg/dL (0-99); THYROID STIMULATING HORMONE 0.641 uIU/mL (0.358-3.74); TRIGLYCERIDES 147 mg/dL (30-150)
[2023-03-02 08:00] VITALS: BP 152/87; TEMP 97.8; O2SAT 98
[2023-03-02] MEDS: PANTOPRAZOLE 40 MG VIAL IV SCH (08:21)
[2023-03-02] MEDS: CEFEPIME 1 GM in IV D5W 50 ML IV SCH ×2 (08:21→20:17)
[2023-03-02] MEDS: OSELTAMIVIR PHOSPHATE SUSP 6 MG/ML BOTTLE PO SCH (09:00)
[2023-03-02] MEDS ORDERED: IV NS 0.9% 1,000 ML IV PRN (11:30)
[2023-03-02 12:00] VITALS: BP 172/82; TEMP 98.2; O2SAT 98
[2023-03-02 16:00] VITALS: BP 189/100; TEMP 98.5; O2SAT 99
[2023-03-02] MEDS: hydrALAZINE HCL IV 20 MG VIAL IV PRN ×2 (17:11→22:46)
[2023-03-02 18:02] VITALS: BP 120/61
[2023-03-02 20:00] VITALS: BP 161/91; TEMP 99.3; O2SAT 97
[2023-03-03] VITALS (7 sets, daily range): BP systolic 129–179; BP diastolic 76–105; TEMP 97.9–99.5; O2SAT 97–100
[2023-03-03 07:51] LABS: EOSINOPHILS % (AUTO) 0.1 % (0.0-6.0); HEMATOCRIT 40 % (33-45); HEMOGLOBIN 12.6 g/dL (11.5-14.8); LYMPHOCYTES # (AUTO) 0.5 K/uL (0.8-4.8); LYMPHOCYTES % (AUTO) 5.6 % (20.0-44.0); MEAN CORPUSCULAR HEMOGLOBIN 32 PG (26.0-33.0); MEAN CORPUSCULAR HGB CONC 31 g/dl (31.0-36.0); MEAN CORPUSCULAR VOLUME 101 fL (82-100); MONOCYTES # (AUTO) 1.2 K/uL (0.1-1.30); MONOCYTES % (AUTO) 12.4 % (2.0-12.0); NEUTROPHILS # (AUTO) 7.8 K/uL (1.8-8.9); NEUTROPHILS % (AUTO) 81.9 % (43.0-81.0); PLATELET COUNT (AUTO) 202 K/uL (150-450); RED BLOOD CELL COUNT(AUTO) 3.99 MIL/uL (4.0-5.2); RED CELL DISTRIBUTION WIDTH 14.8 % (11.5-15.0); WHITE BLOOD COUNT (AUTO) 9.5 K/uL (4.3-11.0)
[2023-03-03 08:06] LABS: ALANINE AMINOTRANSFERASE 21 U/L (12-78); ALBUMIN 2.1 g/dL (3.4-5.0); ALKALINE PHOSPHATASE 89 U/L (46-116); ASPARTATE AMINOTRANSFERASE 23 U/L (15-37); BILIRUBIN,TOTAL 0.9 mg/dL (0.2-1.0); CARBON DIOXIDE 20 mmol/L (21-32); CHLORIDE 114 mmol/L (98-107); CREATININE 1.7 mg/dL (0.6-1.3); GLUCOSE 148 mg/dL (74-106); MAGNESIUM 3.6 mg/dL (1.8-2.4); PHOSPHORUS 3.8 mg/dL (2.5-4.9); POTASSIUM 4.1 mmol/L (3.5-5.1); SODIUM SERUM 147 mmol/L (136-145); UREA NITROGEN, BLOOD 70 mg/dL (7-18)
[2023-03-03 08:08] LABS: CREATINE KINASE, TOTAL 106 U/L (26-192)
[2023-03-03] MEDS ORDERED: IV 1/2NS 1000 ML 1,000 ML IV PRN (08:30)
[2023-03-03] MEDS: OSELTAMIVIR PHOSPHATE SUSP 6 MG/ML BOTTLE PO SCH (09:00)
[2023-03-03] MEDS: IV D5W 1,000 ML IV PRN (10:58)
[2023-03-03] MEDS: CEFEPIME 1 GM in IV D5W 50 ML IV SCH ×2 (12:25→20:55)
[2023-03-03] MEDS: PANTOPRAZOLE 40 MG VIAL IV SCH (12:26)
[2023-03-03] MEDS: hydrALAZINE HCL IV 20 MG VIAL IV PRN ×2 (13:06→19:09)
[2023-03-04] VITALS: BP 145/93; TEMP 98.4; O2SAT 98
[2023-03-04 04:00] VITALS: BP 144/51; TEMP 97.7; O2SAT 99
[2023-03-04 07:41] LABS: CALCIUM, SERUM 9.7 mg/dL (8.5-10.1); CARBON DIOXIDE 21 mmol/L (21-32); CHLORIDE 113 mmol/L (98-107); GLUCOSE 208 mg/dL (74-106); SODIUM SERUM 145 mmol/L (136-145); UREA NITROGEN, BLOOD 75 mg/dL (7-18)
[2023-03-04 08:00] VITALS: BP 153/95; TEMP 98.6; O2SAT 95
[2023-03-04] MEDS: OSELTAMIVIR PHOSPHATE SUSP 6 MG/ML BOTTLE PO SCH (09:00)
[2023-03-04] MEDS: PANTOPRAZOLE 40 MG VIAL IV SCH (11:20)
[2023-03-04] MEDS: IV D5W 1,000 ML IV PRN (11:21)
[2023-03-04 12:00] VITALS: BP 172/90; TEMP 97.5; O2SAT 95
[2023-03-04] MEDS: hydrALAZINE HCL IV 20 MG VIAL IV PRN (12:26)
[2023-03-04 16:00] VITALS: BP 152/90; TEMP 97.3; O2SAT 96
[2023-03-04] MEDS: ASPIRIN EC 81 MG TABLET.DR PO SCH (17:30)
[2023-03-04] MEDS: AMLODIPINE BESYLATE 5 MG TABLET PO SCH (17:30)
[2023-03-04] MEDS ORDERED: NICARDIPINE HCL 40 MG in IV NS 0.9% 184 ML IV PRN (18:30)
[2023-03-04] MEDS ORDERED: NICARDIPINE IN NACL, ISO-OSM 200 ML IV PRN (19:00)
[2023-03-04] MEDS ORDERED: NICARDIPINE HCL 20 MG in IV D5W 192 ML IV PRN (19:00)
[2023-03-04 20:00] VITALS: BP 154/84; TEMP 98.6; O2SAT 97
[2023-03-04] MEDS: ATORVASTATIN 40 MG TABLET PO SCH (22:00)
[2023-03-05] VITALS (7 sets, daily range): BP systolic 151–161; BP diastolic 94–101; TEMP 97.6–98.4; O2SAT 94–97
[2023-03-05 07:06] LABS: PTH, INTACT 59 pg/mL (15-65)
[2023-03-05] MEDS: OSELTAMIVIR PHOSPHATE SUSP 6 MG/ML BOTTLE PO SCH (08:04)
[2023-03-05] MEDS: ASPIRIN EC 81 MG TABLET.DR PO SCH (08:04)
[2023-03-05] MEDS: AMLODIPINE BESYLATE 5 MG TABLET PO SCH ×2 (08:04→17:00)
[2023-03-05 08:07] LABS: *SPE A/G RATIO 0.5 (0.7-1.7); *SPE ALBUMIN 2.3 g/dL (2.9-4.4); *SPE ALPHA-1-GLOBULIN 0.5 g/dL (0.0-0.4); *SPE ALPHA-2-GLOBULIN 1.6 g/dL (0.4-1.0); *SPE BETA GLOBULIN 1.2 g/dL (0.7-1.3); *SPE GLOBULIN, TOTAL 4.5 g/dL (2.2-3.9); *SPE M-SPIKE Not Observed g/dL (Not Observed); *SPE PROTEIN TOTAL 6.8 g/dL (6.0-8.5); *SPEGAMMA GLOBULIN 1.3 g/dL (0.4-1.8)
[2023-03-05] MEDS: CEFEPIME 1 GM in IV D5W 50 ML IV SCH (08:09)
[2023-03-05] MEDS: PANTOPRAZOLE 40 MG VIAL IV SCH (08:09)
[2023-03-05] MEDS: hydrALAZINE HCL IV 20 MG VIAL IV PRN (08:10)
[2023-03-05 08:41] LABS: CALCIUM, SERUM 9.7 mg/dL (8.5-10.1); CARBON DIOXIDE 24 mmol/L (21-32); CHLORIDE 112 mmol/L (98-107); GLUCOSE 229 mg/dL (74-106); POTASSIUM 3.7 mmol/L (3.5-5.1); SODIUM SERUM 145 mmol/L (136-145); UREA NITROGEN, BLOOD 77 mg/dL (7-18)
[2023-03-05] MEDS: IV D5W 1,000 ML IV PRN (12:19)
[2023-03-05] MEDS ORDERED: ASPIRIN 300 MG/SUPP.RECT RC SCH (13:30)
[2023-03-05] MEDS: ATORVASTATIN 40 MG TABLET PO SCH (22:00)
[2023-03-06] VITALS (8 sets, daily range): BP systolic 111–182; BP diastolic 74–100; TEMP 97–99; O2SAT 93–98
[2023-03-06] MEDS: IV D5W 1,000 ML IV PRN (04:50)
[2023-03-06 08:58] LABS: CALCIUM, SERUM 9.4 mg/dL (8.5-10.1); CARBON DIOXIDE 20 mmol/L (21-32); CHLORIDE 110 mmol/L (98-107); GLUCOSE 231 mg/dL (74-106); POTASSIUM 3.9 mmol/L (3.5-5.1); SODIUM SERUM 142 mmol/L (136-145); UREA NITROGEN, BLOOD 73 mg/dL (7-18)
[2023-03-06] MEDS: OSELTAMIVIR PHOSPHATE SUSP 6 MG/ML BOTTLE PO SCH (09:00)
[2023-03-06] MEDS: ASPIRIN EC 81 MG TABLET.DR PO SCH (09:29)
[2023-03-06] MEDS: PANTOPRAZOLE 40 MG VIAL IV SCH (09:29)
[2023-03-06] MEDS: AMLODIPINE BESYLATE 5 MG TABLET PO SCH ×2 (09:29→17:40)
[2023-03-06] MEDS: CEFEPIME 1 GM in IV D5W 50 ML IV SCH (09:29)
[2023-03-06] MEDS: hydrALAZINE HCL IV 20 MG VIAL IV PRN ×2 (12:40→22:03)
[2023-03-06] MEDS: ATORVASTATIN 40 MG TABLET PO SCH (21:34)
[2023-03-07] VITALS: BP 150/96; TEMP 98.8; O2SAT 94
[2023-03-07] MEDS: IV D5W 1,000 ML IV PRN ×2 (02:08→21:41)
[2023-03-07 04:00] VITALS: BP 144/95; TEMP 98.6; O2SAT 96
[2023-03-07 08:00] VITALS: BP 150/99; TEMP 98; O2SAT 96
[2023-03-07] MEDS: CEFEPIME 1 GM in IV D5W 50 ML IV SCH (08:29)
[2023-03-07] MEDS: PANTOPRAZOLE 40 MG VIAL IV SCH (08:30)
[2023-03-07] MEDS: hydrALAZINE HCL IV 20 MG VIAL IV PRN ×3 (08:32→21:05)
[2023-03-07] MEDS: ASPIRIN EC 81 MG TABLET.DR PO SCH (09:00)
[2023-03-07] MEDS: AMLODIPINE BESYLATE 5 MG TABLET PO SCH ×2 (09:00→17:00)
[2023-03-07 09:51] LABS: CALCIUM, SERUM 9.6 mg/dL (8.5-10.1); CARBON DIOXIDE 16 mmol/L (21-32); CHLORIDE 109 mmol/L (98-107); CREATININE 1.7 mg/dL (0.6-1.3); GLUCOSE 235 mg/dL (74-106); POTASSIUM 4.1 mmol/L (3.5-5.1); SODIUM SERUM 137 mmol/L (136-145); UREA NITROGEN, BLOOD 68 mg/dL (7-18)
[2023-03-07 09:59] LABS: ALANINE AMINOTRANSFERASE 12 U/L (12-78); ALKALINE PHOSPHATASE 113 U/L (46-116); ASPARTATE AMINOTRANSFERASE 18 U/L (15-37); BILIRUBIN,TOTAL 0.8 mg/dL (0.2-1.0); TOTAL PROTEIN, SERUM 7.7 g/dL (6.4-8.2)
[2023-03-07 12:00] VITALS: BP 155/90; TEMP 98.8; O2SAT 96
[2023-03-07 12:11] LABS: ALBUMIN 1.9 g/dL (3.4-5.0)
[2023-03-07] MEDS ORDERED: ASPIRIN 300 MG/SUPP.RECT RC ONE (13:00)
[2023-03-07 16:00] VITALS: BP 152/90; TEMP 97.9; O2SAT 96
[2023-03-07 20:00] VITALS: BP 173/94; TEMP 98.3; O2SAT 94
[2023-03-07] MEDS: ATORVASTATIN 40 MG TABLET PO SCH (21:14)
[2023-03-08] VITALS (7 sets, daily range): BP systolic 125–154; BP diastolic 56–98; TEMP 98.1–102.2; O2SAT 95–96
[2023-03-08 07:39] LABS: CALCIUM, SERUM 9.5 mg/dL (8.5-10.1); CARBON DIOXIDE 22 mmol/L (21-32); CHLORIDE 107 mmol/L (98-107); CREATININE 1.8 mg/dL (0.6-1.3); GLUCOSE 262 mg/dL (74-106); POTASSIUM 3.7 mmol/L (3.5-5.1); SODIUM SERUM 138 mmol/L (136-145); UREA NITROGEN, BLOOD 67 mg/dL (7-18)
[2023-03-08 07:46] LABS: ALANINE AMINOTRANSFERASE 21 U/L (12-78); ALKALINE PHOSPHATASE 133 U/L (46-116); ASPARTATE AMINOTRANSFERASE 19 U/L (15-37); TOTAL PROTEIN, SERUM 7.9 g/dL (6.4-8.2)
[2023-03-08] MEDS: AMLODIPINE BESYLATE 5 MG TABLET PO SCH ×2 (08:04→16:30)
[2023-03-08] MEDS: ASPIRIN EC 81 MG TABLET.DR PO SCH (08:04)
[2023-03-08] MEDS: PANTOPRAZOLE 40 MG VIAL IV SCH (08:37)
[2023-03-08] MEDS: CEFEPIME 1 GM in IV D5W 50 ML IV SCH (08:40)
[2023-03-08] MEDS: IV D5W 1,000 ML IV PRN (19:12)
[2023-03-08] MEDS ORDERED: ACETAMINOPHEN 650 MG/SUPP.RECT RC PRN (20:30)
[2023-03-08] MEDS: ATORVASTATIN 40 MG TABLET PO SCH (21:32)
[2023-03-09] VITALS (8 sets, daily range): BP systolic 115–179; BP diastolic 76–96; TEMP 97–97.7; O2SAT 98–100
[2023-03-09 07:42] LABS: CALCIUM, SERUM 8.8 mg/dL (8.5-10.1); CARBON DIOXIDE 21 mmol/L (21-32); CHLORIDE 105 mmol/L (98-107); CREATININE 2.7 mg/dL (0.6-1.3); GLUCOSE 345 mg/dL (74-106); POTASSIUM 4.3 mmol/L (3.5-5.1); SODIUM SERUM 135 mmol/L (136-145)
[2023-03-09 07:49] LABS: ALANINE AMINOTRANSFERASE 40 U/L (12-78); ALBUMIN 1.5 g/dL (3.4-5.0); ALKALINE PHOSPHATASE 152 U/L (46-116); ASPARTATE AMINOTRANSFERASE 66 U/L (15-37); TOTAL PROTEIN, SERUM 6.5 g/dL (6.4-8.2)
[2023-03-09 07:52] LABS: UREA NITROGEN, BLOOD 83 mg/dL (7-18)
[2023-03-09] MEDS: CEFEPIME 1 GM in IV D5W 50 ML IV SCH (08:58)
[2023-03-09] MEDS: PANTOPRAZOLE 40 MG VIAL IV SCH (08:58)
[2023-03-09] MEDS: AMLODIPINE BESYLATE 5 MG TABLET PO SCH ×2 (09:00→17:00)
[2023-03-09] MEDS: ASPIRIN EC 81 MG TABLET.DR PO SCH (09:00)
[2023-03-09] MEDS: hydrALAZINE HCL IV 20 MG VIAL IV PRN ×2 (09:47→20:38)
[2023-03-09] MEDS ORDERED: IV D5/0.45 NACL 500 ML IV PRN (10:30)
[2023-03-09] MEDS: IV D5/0.45 NACL 1,000 ML IV PRN (14:26)
[2023-03-09] MEDS: ATORVASTATIN 40 MG TABLET PO SCH (22:00)
[2023-03-10] VITALS: TEMP 98.9; O2SAT 97
[2023-03-10 04:00] VITALS: BP 155/96; TEMP 98; O2SAT 96
[2023-03-10 07:33] LABS: BASOPHILS % (AUTO) 0.1 % (0.0-2.0); EOSINOPHILS # (AUTO) 0.1 K/uL (0.0-0.7); EOSINOPHILS % (AUTO) 0.2 % (0.0-6.0); HEMATOCRIT 30 % (33-45); HEMOGLOBIN 9.6 g/dL (11.5-14.8); LYMPHOCYTES # (AUTO) 0.7 K/uL (0.8-4.8); LYMPHOCYTES % (AUTO) 2.2 % (20.0-44.0); MEAN CORPUSCULAR HEMOGLOBIN 31 PG (26.0-33.0); MEAN CORPUSCULAR HGB CONC 32 g/dl (31.0-36.0); MEAN CORPUSCULAR VOLUME 99 fL (82-100); MONOCYTES # (AUTO) 0.9 K/uL (0.1-1.30); MONOCYTES % (AUTO) 2.8 % (2.0-12.0); NEUTROPHILS # (AUTO) 29.7 K/uL (1.8-8.9); NEUTROPHILS % (AUTO) 94.7 % (43.0-81.0); PLATELET COUNT (AUTO) 304 K/uL (150-450); RED BLOOD CELL COUNT(AUTO) 3.08 MIL/uL (4.0-5.2); RED CELL DISTRIBUTION WIDTH 14.2 % (11.5-15.0)
[2023-03-10 07:34] LABS: WHITE BLOOD COUNT (AUTO) 31.4 K/uL (4.3-11.0)
[2023-03-10 07:59] LABS: CALCIUM, SERUM 8.4 mg/dL (8.5-10.1); CARBON DIOXIDE 18 mmol/L (21-32); CHLORIDE 105 mmol/L (98-107); CREATININE 2.6 mg/dL (0.6-1.3); GLUCOSE 360 mg/dL (74-106); POTASSIUM 3.4 mmol/L (3.5-5.1); SODIUM SERUM 135 mmol/L (136-145)
[2023-03-10 08:00] VITALS: BP 161/114; TEMP 97.5; O2SAT 98
[2023-03-10 08:24] LABS: UREA NITROGEN, BLOOD 86 mg/dL (7-18)
[2023-03-10] MEDS: AMLODIPINE BESYLATE 5 MG TABLET PO SCH ×3 (08:30→16:22)
[2023-03-10] MEDS: CEFEPIME 1 GM in IV D5W 50 ML IV SCH (08:30)
[2023-03-10] MEDS: ASPIRIN EC 81 MG TABLET.DR PO SCH ×2 (08:30→08:34)
[2023-03-10] MEDS: PANTOPRAZOLE 40 MG VIAL IV SCH (08:30)
[2023-03-10] MEDS: hydrALAZINE HCL IV 20 MG VIAL IV PRN ×2 (08:31→16:28)
[2023-03-10] MEDS ORDERED: IV NS 0.9% 500 ML IV ONE ×2 (10:30→11:30)
[2023-03-10] MEDS ORDERED: POTASSIUM CHLORIDE 10 MEQ/50 ML PREMIXED IVPB FOR PERIPHERAL LINE IV ONE (10:30)
[2023-03-10 12:00] VITALS: BP 172/96; TEMP 97.7; O2SAT 97
[2023-03-10] MEDS: IV D5/0.45 NACL 1,000 ML IV PRN (12:01)
[2023-03-10 12:02] LABS: ANISOCYTOSIS 1+; BASOPHILS % (MANUAL) 0 % (0.0-2.0); EOSINOPHILS % (MANUAL) 0 % (0-4); LYMPHOCYTES % (MANUAL) 5 % (16-48); MONOCYTES % (MANUAL) 4 % (0-11.0); NEUTROPHILS % (MANUAL) 91 (42-76); PLATELET ESTIMATE ADEQUATE
[2023-03-10 16:00] VITALS: BP 144/102; TEMP 97; O2SAT 99
[2023-03-10 20:00] VITALS: BP 153/79; TEMP 96.8; O2SAT 99
[2023-03-10] MEDS: ATORVASTATIN 40 MG TABLET PO SCH (22:37)
[2023-03-11] VITALS: BP 131/72; TEMP 97.7; O2SAT 97
[2023-03-11] MEDS: IV D5/0.45 NACL 1,000 ML IV PRN (00:57)
[2023-03-11 04:00] VITALS: BP 130/69; TEMP 97.7; O2SAT 98
[2023-03-11 07:19] LABS: BASOPHILS % (AUTO) 0.1 % (0.0-2.0); EOSINOPHILS # (AUTO) 0.1 K/uL (0.0-0.7); EOSINOPHILS % (AUTO) 0.6 % (0.0-6.0); HEMATOCRIT 29 % (33-45); HEMOGLOBIN 9.4 g/dL (11.5-14.8); LYMPHOCYTES # (AUTO) 0.4 K/uL (0.8-4.8); LYMPHOCYTES % (AUTO) 1.9 % (20.0-44.0); MEAN CORPUSCULAR HEMOGLOBIN 31 PG (26.0-33.0); MEAN CORPUSCULAR HGB CONC 33 g/dl (31.0-36.0); MEAN CORPUSCULAR VOLUME 96 fL (82-100); MONOCYTES # (AUTO) 0.8 K/uL (0.1-1.30); MONOCYTES % (AUTO) 3.5 % (2.0-12.0); NEUTROPHILS # (AUTO) 20.1 K/uL (1.8-8.9); NEUTROPHILS % (AUTO) 93.9 % (43.0-81.0); PLATELET COUNT (AUTO) 299 K/uL (150-450); RED CELL DISTRIBUTION WIDTH 13.7 % (11.5-15.0); WHITE BLOOD COUNT (AUTO) 21.4 K/uL (4.3-11.0)
[2023-03-11 07:37] LABS: CALCIUM, SERUM 8.5 mg/dL (8.5-10.1); CARBON DIOXIDE 17 mmol/L (21-32); CHLORIDE 107 mmol/L (98-107); CREATININE 2.2 mg/dL (0.6-1.3); GLUCOSE 353 mg/dL (74-106); POTASSIUM 3.2 mmol/L (3.5-5.1); SODIUM SERUM 136 mmol/L (136-145); UREA NITROGEN, BLOOD 76 mg/dL (7-18)
[2023-03-11 08:00] VITALS: BP 112/72; TEMP 97.5; O2SAT 97
[2023-03-11] MEDS: PANTOPRAZOLE 40 MG VIAL IV SCH (08:41)
[2023-03-11] MEDS: AMLODIPINE BESYLATE 5 MG TABLET PO SCH ×2 (08:41→16:10)
[2023-03-11] MEDS: ASPIRIN EC 81 MG TABLET.DR PO SCH (08:41)
[2023-03-11] MEDS: CEFEPIME 1 GM in IV D5W 50 ML IV SCH (08:46)
[2023-03-11] MEDS: POTASSIUM CL. PREMIX PERIPHER. 50 ML IV SCH ×3 (09:39→13:06)
[2023-03-11 12:00] VITALS: BP 146/98; TEMP 97.7; O2SAT 98
[2023-03-11] MEDS ORDERED: IV D5/0.45 NACL 1,000 ML IV PRN (13:00)
[2023-03-11] MEDS: GLUCERNA 1.2 1,000 ML BOTTLE NG PRN (13:53)
[2023-03-11 16:00] VITALS: BP 145/75; TEMP 97.9; O2SAT 100
[2023-03-11] MEDS: METRONIDAZOLE 500 MG TABLET PO SCH ×2 (16:09→21:47)
[2023-03-11] MEDS: POLYETHYLENE GLYCOL 3350 17 GM POWD.PACK PO SCH (16:10)
[2023-03-11 20:00] VITALS: BP_SYST 160; BP_SYST 181; BP_DIAS 66; BP_DIAS 82; TEMP 97.9; TEMP 98.2; O2SAT 98
[2023-03-11] MEDS: hydrALAZINE HCL IV 20 MG VIAL IV PRN (20:03)
[2023-03-11] MEDS: ATORVASTATIN 40 MG TABLET PO SCH (21:47)
[2023-03-12] VITALS: BP 145/77; TEMP 98; O2SAT 98
[2023-03-12 04:00] VITALS: BP 125/73; TEMP 98.9; O2SAT 98
[2023-03-12] MEDS: METRONIDAZOLE 500 MG TABLET PO SCH ×3 (05:39→21:09)
[2023-03-12 06:13] LABS: EOSINOPHILS # (AUTO) 0.1 K/uL (0.0-0.7); EOSINOPHILS % (AUTO) 0.3 % (0.0-6.0); HEMATOCRIT 30 % (33-45); HEMOGLOBIN 9.7 g/dL (11.5-14.8); LYMPHOCYTES # (AUTO) 0.7 K/uL (0.8-4.8); LYMPHOCYTES % (AUTO) 4.4 % (20.0-44.0); MEAN CORPUSCULAR HEMOGLOBIN 31 PG (26.0-33.0); MEAN CORPUSCULAR HGB CONC 33 g/dl (31.0-36.0); MEAN CORPUSCULAR VOLUME 96 fL (82-100); MONOCYTES % (AUTO) 5.9 % (2.0-12.0); NEUTROPHILS % (AUTO) 89.4 % (43.0-81.0); PLATELET COUNT (AUTO) 305 K/uL (150-450); RED BLOOD CELL COUNT(AUTO) 3.13 MIL/uL (4.0-5.2); RED CELL DISTRIBUTION WIDTH 13.7 % (11.5-15.0); WHITE BLOOD COUNT (AUTO) 16.8 K/uL (4.3-11.0)
[2023-03-12 06:27] LABS: CALCIUM, SERUM 8.7 mg/dL (8.5-10.1); CARBON DIOXIDE 17 mmol/L (21-32); CHLORIDE 110 mmol/L (98-107); CREATININE 1.9 mg/dL (0.6-1.3); GLUCOSE 333 mg/dL (74-106); POTASSIUM 3.5 mmol/L (3.5-5.1); SODIUM SERUM 139 mmol/L (136-145); UREA NITROGEN, BLOOD 64 mg/dL (7-18)
[2023-03-12 08:00] VITALS: BP 185/90; TEMP 98.1; O2SAT 97
[2023-03-12] MEDS: CEFEPIME 1 GM in IV D5W 50 ML IV SCH (08:30)
[2023-03-12] MEDS: POLYETHYLENE GLYCOL 3350 17 GM POWD.PACK PO SCH (08:30)
[2023-03-12] MEDS: AMLODIPINE BESYLATE 5 MG TABLET PO SCH ×2 (08:31→16:12)
[2023-03-12] MEDS: ASPIRIN EC 81 MG TABLET.DR PO SCH (08:31)
[2023-03-12] MEDS: PANTOPRAZOLE 40 MG/PACK PACK NG SCH (08:32)
[2023-03-12] MEDS: hydrALAZINE HCL IV 20 MG VIAL IV PRN ×2 (08:48→23:57)
[2023-03-12] MEDS ORDERED: DEXTROSE 50%-WATER 50 ML DISP.SYRIN IV PRN (10:30)
[2023-03-12] MEDS ORDERED: LACTULOSE 10 G/15 ML UDC (PYXIS) GT ONE (11:00)
[2023-03-12 12:00] VITALS: BP 147/79; TEMP 98.2; O2SAT 97
[2023-03-12] MEDS: INSULIN REGULAR, HUMAN 100 UNIT/ML 3 ML VIAL SQ PRN (12:34)
[2023-03-12] MEDS: BLOOD SUGAR DIAGNOSTIC 1 EACH STRIP IN SCH ×2 (12:34→17:18)
[2023-03-12 16:00] VITALS: BP 149/88; TEMP 98.5; O2SAT 97
[2023-03-12 20:00] VITALS: BP 193/84; TEMP 97.9; O2SAT 97
[2023-03-12] MEDS: ATORVASTATIN 40 MG TABLET PO SCH (21:09)
[2023-03-13] VITALS: BP 165/88; TEMP 97.9; O2SAT 97
[2023-03-13] MEDS: GLUCERNA 1.2 1,000 ML BOTTLE NG PRN (01:21)
[2023-03-13] MEDS: INSULIN REGULAR, HUMAN 100 UNIT/ML 3 ML VIAL SQ PRN ×3 (01:35→12:10)
[2023-03-13] MEDS: BLOOD SUGAR DIAGNOSTIC 1 EACH STRIP IN SCH ×3 (01:37→12:06)
[2023-03-13 04:00] VITALS: BP 135/82; TEMP 97.9; O2SAT 97
[2023-03-13] MEDS: METRONIDAZOLE 500 MG TABLET PO SCH ×2 (05:29→12:12)
[2023-03-13 06:32] LABS: BASOPHILS % (AUTO) 0.1 % (0.0-2.0); EOSINOPHILS # (AUTO) 0.1 K/uL (0.0-0.7); EOSINOPHILS % (AUTO) 0.8 % (0.0-6.0); HEMATOCRIT 29 % (33-45); HEMOGLOBIN 9.7 g/dL (11.5-14.8); LYMPHOCYTES # (AUTO) 0.7 K/uL (0.8-4.8); LYMPHOCYTES % (AUTO) 5.1 % (20.0-44.0); MEAN CORPUSCULAR HEMOGLOBIN 32 PG (26.0-33.0); MEAN CORPUSCULAR HGB CONC 33 g/dl (31.0-36.0); MEAN CORPUSCULAR VOLUME 96 fL (82-100); MONOCYTES % (AUTO) 6.7 % (2.0-12.0); NEUTROPHILS # (AUTO) 12.7 K/uL (1.8-8.9); NEUTROPHILS % (AUTO) 87.3 % (43.0-81.0); PLATELET COUNT (AUTO) 294 K/uL (150-450); RED BLOOD CELL COUNT(AUTO) 3.06 MIL/uL (4.0-5.2); RED CELL DISTRIBUTION WIDTH 13.8 % (11.5-15.0); WHITE BLOOD COUNT (AUTO) 14.5 K/uL (4.3-11.0)
[2023-03-13 06:55] LABS: CALCIUM, SERUM 9.3 mg/dL (8.5-10.1); CARBON DIOXIDE 19 mmol/L (21-32); CHLORIDE 115 mmol/L (98-107); CREATININE 1.9 mg/dL (0.6-1.3); GLUCOSE 166 mg/dL (74-106); POTASSIUM 3.4 mmol/L (3.5-5.1); SODIUM SERUM 144 mmol/L (136-145); UREA NITROGEN, BLOOD 62 mg/dL (7-18)
[2023-03-13 08:00] VITALS: BP 158/90; TEMP 98.6; O2SAT 97
[2023-03-13] MEDS: PANTOPRAZOLE 40 MG/PACK PACK NG SCH (08:45)
[2023-03-13] MEDS: POLYETHYLENE GLYCOL 3350 17 GM POWD.PACK PO SCH (08:45)
[2023-03-13] MEDS: CEFEPIME 1 GM in IV D5W 50 ML IV SCH (08:45)
[2023-03-13] MEDS: AMLODIPINE BESYLATE 5 MG TABLET PO SCH (08:45)
[2023-03-13] MEDS: ASPIRIN EC 81 MG TABLET.DR PO SCH (08:45)
[2023-03-13] MEDS ORDERED: POTASSIUM CHLORIDE 20 MEQ POWDER PACKET PO ONE (10:00)
[2023-03-13] MEDS ORDERED: ACET650S11 RC (11:59)
[2023-03-13] MEDS ORDERED: Aspirin Ec PO (11:59)
[2023-03-13] MEDS ORDERED: METR500T PO (11:59)
[2023-03-13] MEDS ORDERED: CEFE1PIG3 IV (11:59)
[2023-03-13] MEDS ORDERED: POLY17PO29 PO (11:59)
[2023-03-13] MEDS ORDERED: NUT.237L45 NG (11:59)
[2023-03-13] MEDS ORDERED: INSU100V28 SQ (11:59)
[2023-03-13] MEDS ORDERED: ACET325T53 PO (11:59)
[2023-03-13] MEDS ORDERED: AMLO-212 PO (11:59)
[2023-03-13] MEDS ORDERED: ATOR40TA PO (11:59)
[2023-03-13] MEDS ORDERED: Blood Sugar Diagnostic IN (11:59)
[2023-03-13 12:00] VITALS: BP 120/71; TEMP 98.4; O2SAT 98
== END 2023-03-13 17:27 | DRG 871 ==
LOC: ER 21:03 → TELE1 23:18
PROVIDERS: ADMIT Nurse Practitioner Acute Care; ATTEND Nurse Practitioner Acute Care
PROC: 05H533Z Insertion of Infusion Device into Right Subclavian Vein, Percutaneous Approach (ICD-10-PCS; principal; 2023-03-09)
PROC: B546ZZA Ultrasonography of Right Subclavian Vein, Guidance (ICD-10-PCS; 2023-03-09)
PROC: 0DH63UZ Insertion of Feeding Device into Stomach, Percutaneous Approach (ICD-10-PCS; 2023-03-10)
DX: A41.51 Sepsis due to Escherichia coli [E. coli] (principal); E43 Unspecified severe protein-calorie malnutrition; N17.0 Acute kidney failure with tubular necrosis; J69.0 Pneumonitis due to inhalation of food and vomit; I63.81 Other cerebral infarction due to occlusion or stenosis of small artery; G92.8 Other toxic encephalopathy; J10.08 Influenza due to other identified influenza virus with other specified pneumonia; E87.20 Acidosis, unspecified; E87.0 Hyperosmolality and hypernatremia; G81.04 Flaccid hemiplegia affecting left nondominant side; K57.32 Diverticulitis of large intestine without perforation or abscess without bleeding; I12.9 Hypertensive chronic kidney disease with stage 1 through stage 4 chronic kidney disease, or unspecified chronic kidney disease; N18.9 Chronic kidney disease, unspecified; Z20.822 Contact with and (suspected) exposure to COVID-19; E78.5 Hyperlipidemia, unspecified; E83.41 Hypermagnesemia; E86.9 Volume depletion, unspecified; E88.09 Other disorders of plasma-protein metabolism, not elsewhere classified; K29.70 Gastritis, unspecified, without bleeding; L80 Vitiligo; R13.10 Dysphagia, unspecified; R29.810 Facial weakness; N28.1 Cyst of kidney, acquired; Z87.01 Personal history of pneumonia (recurrent); K76.89 Other specified diseases of liver; K52.9 Noninfective gastroenteritis and colitis, unspecified; Z68.20 Body mass index [BMI] 20.0-20.9, adult; R29.715 NIHSS score 15; M89.8X9 Other specified disorders of bone, unspecified site; Z86.73 Personal history of transient ischemic attack (TIA), and cerebral infarction without residual deficits; Z91.199 Patient's noncompliance with other medical treatment and regimen due to unspecified reason; Z82.49 Family history of ischemic heart disease and other diseases of the circulatory system; R73.03 Prediabetes
CPT/HCPCS: 36410; 36415; 43246; 70450-TC; 70496-TC; 70498-TC; 70551-TC; 71045-TC; 74018; 76770-TC; 80048-TC; 80053-TC; 80061-TC; 80076-TC; 81001; 82550-TC; 82962-TC; 83605-TC; 83735-TC; 83880; 83970; 84100-TC; 84155; 84165; 84439-TC; 84443-TC; 84484-TC; 85025-TC; 85730-TC; 87040-TC; 87086-TC; 87186-TC; 92526; 92611-TC; 97110-TC; 97112-TC; 97530-TC; 97535-TC; A4223; C9113; C9803; G0378; J0360; J0690; J0692; J1815; J2405; J2704; J3370; J3480; J3490; J7030; J7040; J7050; J7060; J7070; Q9967

== ENCOUNTER 2023-03-24 09:59 | Emergency (ER) | payer SELFPAY ==
[~2023-03-24] VITALS: Ht 162.6 cm; Wt 57.2 kg
[~2023-03-24 09:59] MED LIST changes: +ACET325T53 PO; +ACET650S11 RC; +AMLO-212 PO; +ATOR40TA PO; +Aspirin Ec PO; +Blood Sugar Diagnostic IN; -CARV12.52 PO; +CEFE1PIG3 IV; -INSU100I19 SQ; -INSU100V11 SQ; +INSU100V28 SQ; -METH4TAB3 PO; +METR500T PO; +NUT.237L45 NG; +POLY17PO29 PO; -SIMV-46 PO
[2023-03-24] MEDS ORDERED: DIATR MEGLU/DIATRIZOATE SODIUM 30 ML BOTTLE (GASTROGRAPHIN) ONE (10:11)
[2023-03-24 11:56] VITALS: BP 114/88; TEMP 98.1; O2SAT 100
== END 2023-03-24 11:57 ==
LOC: ER 10:05
DX: Z43.1 Encounter for attention to gastrostomy (principal); I10 Essential (primary) hypertension; E78.5 Hyperlipidemia, unspecified; E11.9 Type 2 diabetes mellitus without complications; F17.200 Nicotine dependence, unspecified, uncomplicated; Z79.4 Long term (current) use of insulin; Z79.899 Other long term (current) drug therapy
CPT/HCPCS: 99284; 43762; 74018; Q9963

== ENCOUNTER 2023-04-04 13:26 | Inpatient (IN) | payer MEDICARE ==
[~2023-04-04] VITALS: Ht 167.6 cm; Wt 48.1 kg
[2023-04-04] MEDS ORDERED: GLUC1KIT IM (14:00)
[2023-04-04] MEDS ORDERED: ASPI-1169 GT (14:00)
[2023-04-04] MEDS ORDERED: NUT.250L18 GT (14:00)
[2023-04-04] MEDS ORDERED: ACET-868 GT (14:00)
[2023-04-04] MEDS ORDERED: PANT40SU2 GT (14:00)
[2023-04-04] MEDS ORDERED: AMIN30LI2 GT (14:00)
[2023-04-04] MEDS ORDERED: MENT71OI2 TP (14:00)
[2023-04-04] MEDS ORDERED: SULF1TAB48 GT (14:00)
[2023-04-04] MEDS ORDERED: DOXY100T2 GT (14:00)
[2023-04-04] MEDS ORDERED: POLY17PO4 GT (14:00)
[2023-04-04] MEDS ORDERED: INSU100V3 SQ (14:00)
[2023-04-04] MEDS ORDERED: AMLO-212 GT (14:00)
[2023-04-04] MEDS ORDERED: ATOR40TA GT (14:00)
[2023-04-04] MEDS ORDERED: DIATR MEGLU/DIATRIZOATE SODIUM 30 ML BOTTLE (GASTROGRAPHIN) ONE (14:28)
[2023-04-04 14:53] LABS: BASOPHILS # (AUTO) 0.1 K/uL (0.0-0.2); BASOPHILS % (AUTO) 0.9 % (0.0-2.0); EOSINOPHILS # (AUTO) 0.2 K/uL (0.0-0.7); EOSINOPHILS % (AUTO) 1.4 % (0.0-6.0); HEMATOCRIT 25 % (33-45); HEMOGLOBIN 7.9 g/dL (11.5-14.8); LYMPHOCYTES # (AUTO) 1.6 K/uL (0.8-4.8); LYMPHOCYTES % (AUTO) 11.5 % (20.0-44.0); MEAN CORPUSCULAR HEMOGLOBIN 31 PG (26.0-33.0); MEAN CORPUSCULAR HGB CONC 32 g/dl (31.0-36.0); MEAN CORPUSCULAR VOLUME 96 fL (82-100); MONOCYTES # (AUTO) 1.1 K/uL (0.1-1.30); MONOCYTES % (AUTO) 7.9 % (2.0-12.0); NEUTROPHILS # (AUTO) 10.7 K/uL (1.8-8.9); NEUTROPHILS % (AUTO) 78.3 % (43.0-81.0); PLATELET COUNT (AUTO) 417 K/uL (150-450); RED BLOOD CELL COUNT(AUTO) 2.59 MIL/uL (4.0-5.2); RED CELL DISTRIBUTION WIDTH 13.1 % (11.5-15.0); WHITE BLOOD COUNT (AUTO) 13.7 K/uL (4.3-11.0)
[2023-04-04 15:05] LABS: CARBON DIOXIDE 30 mmol/L (21-32); CHLORIDE 101 mmol/L (98-107); CREATININE 1.4 mg/dL (0.6-1.3); GLUCOSE 197 mg/dL (74-106); INR 1.23 (0.91-1.10); PARTIAL THROMBOPLASTIN TIME 28.2 SEC (24.3-34.3); POTASSIUM 3.8 mmol/L (3.5-5.1); PROTHROMBIN TIME 12.9 SECS (9.2-11.1); SODIUM SERUM 137 mmol/L (136-145); UREA NITROGEN, BLOOD 32 mg/dL (7-18)
[2023-04-04] MEDS ORDERED: hydrALAZINE HCL IV 20 MG VIAL IV PRN (18:30)
[2023-04-04] MEDS ORDERED: DEXTROSE 50%-WATER 50 ML DISP.SYRIN IV PRN (18:30)
[2023-04-04] MEDS ORDERED: MORPHINE SULFATE INJ 2 MG/ML DISP.SYRIN IV PRN (18:30)
[2023-04-04] MEDS ORDERED: INSULIN REGULAR, HUMAN 100 UNIT/ML 3 ML VIAL SQ PRN (18:30)
[2023-04-04] MEDS ORDERED: Z GUARD REMEDY 4 OZ OINT TP PRN (18:30)
[2023-04-04] MEDS ORDERED: ALBUTEROL FS 2.5 MG/0.5 ML VIAL.NEB NEB PRN (18:30)
[2023-04-04] MEDS ORDERED: ACETAMINOPHEN 325 MG TABLET PO PRN (18:30)
[2023-04-04] MEDS ORDERED: AZITHROMYCIN 500 MG in IV D5W 250 ML IV SCH (18:30)
[2023-04-04] MEDS ORDERED: ONDANSETRON HCL/PF 4 MG/2 ML VIAL IVP PRN (18:30)
[2023-04-04] MEDS: IV NS 0.9% 1,000 ML IV SCH (20:33)
[2023-04-04] MEDS: CEFEPIME 1 GM in IV D5W 50 ML IV SCH (20:34)
[2023-04-04 21:00] VITALS: BP 145/82; TEMP 97.5; O2SAT 99
[2023-04-04] MEDS: HEPARIN SODIUM, PORCINE 5000 UNITS/1 ML VIAL SQ SCH (21:00)
[2023-04-04] MEDS ORDERED: ZITHROMAX 500 MG/250 ML D5W IV SCH ×2 (21:00)
[2023-04-04] MEDS ORDERED: ATORVASTATIN 40 MG TABLET GT SCH (22:00)
[2023-04-04] MEDS: ALBUTEROL FS 2.5 MG/0.5 ML VIAL.NEB NEB SCH (22:25)
[2023-04-04] MEDS: IPRATROPIUM NEB FS 0.5 MG/2.5 ML AMPUL.NEB NEB SCH (22:25)
[2023-04-04] MEDS: BLOOD SUGAR DIAGNOSTIC 1 EACH STRIP IN SCH (22:50)
[2023-04-05] VITALS (7 sets, daily range): BP systolic 135–157; BP diastolic 89–107; TEMP 97.7–97.9; O2SAT 95–100
[2023-04-05] MEDS ORDERED: IPRATROPIUM/ALBUTEROL INHALER IH SCH
[2023-04-05] MEDS: IPRATROPIUM NEB FS 0.5 MG/2.5 ML AMPUL.NEB NEB SCH ×3 (02:25→13:30)
[2023-04-05] MEDS: ALBUTEROL FS 2.5 MG/0.5 ML VIAL.NEB NEB SCH ×3 (02:25→13:30)
[2023-04-05] MEDS: BLOOD SUGAR DIAGNOSTIC 1 EACH STRIP IN SCH ×2 (06:14→11:37)
[2023-04-05 07:27] LABS: BASOPHILS # (AUTO) 0.1 K/uL (0.0-0.2); BASOPHILS % (AUTO) 0.4 % (0.0-2.0); EOSINOPHILS # (AUTO) 0.3 K/uL (0.0-0.7); EOSINOPHILS % (AUTO) 2.5 % (0.0-6.0); HEMATOCRIT 24 % (33-45); HEMOGLOBIN 7.8 g/dL (11.5-14.8); LYMPHOCYTES # (AUTO) 1.5 K/uL (0.8-4.8); LYMPHOCYTES % (AUTO) 12.4 % (20.0-44.0); MEAN CORPUSCULAR HEMOGLOBIN 32 PG (26.0-33.0); MEAN CORPUSCULAR HGB CONC 33 g/dl (31.0-36.0); MEAN CORPUSCULAR VOLUME 96 fL (82-100); MONOCYTES % (AUTO) 8.2 % (2.0-12.0); NEUTROPHILS # (AUTO) 9.4 K/uL (1.8-8.9); NEUTROPHILS % (AUTO) 76.5 % (43.0-81.0); PLATELET COUNT (AUTO) 377 K/uL (150-450); RED BLOOD CELL COUNT(AUTO) 2.46 MIL/uL (4.0-5.2); RED CELL DISTRIBUTION WIDTH 13.3 % (11.5-15.0); WHITE BLOOD COUNT (AUTO) 12.3 K/uL (4.3-11.0)
[2023-04-05 08:04] LABS: ALANINE AMINOTRANSFERASE 25 U/L (12-78); ALKALINE PHOSPHATASE 220 U/L (46-116); ASPARTATE AMINOTRANSFERASE 35 U/L (15-37); BILIRUBIN,TOTAL 0.5 mg/dL (0.2-1.0); CALCIUM, SERUM 9.7 mg/dL (8.5-10.1); CARBON DIOXIDE 27 mmol/L (21-32); CHLORIDE 103 mmol/L (98-107); CREATININE 1.4 mg/dL (0.6-1.3); GLUCOSE 100 mg/dL (74-106); MAGNESIUM 2.3 mg/dL (1.8-2.4); PHOSPHORUS 3.8 mg/dL (2.5-4.9); SODIUM SERUM 138 mmol/L (136-145); TOTAL PROTEIN, SERUM 7.3 g/dL (6.4-8.2); UREA NITROGEN, BLOOD 34 mg/dL (7-18)
[2023-04-05] MEDS: CEFEPIME 1 GM in IV D5W 50 ML IV SCH (08:26)
[2023-04-05] MEDS ORDERED: AMLODIPINE BESYLATE 5 MG TABLET GT SCH (09:00)
[2023-04-05] MEDS ORDERED: ASPIRIN 81 MG TAB.CHEW GT SCH (09:00)
[2023-04-05] MEDS ORDERED: PANTOPRAZOLE 40 MG/PACK PACK GT SCH (09:00)
[2023-04-05] MEDS: HEPARIN SODIUM, PORCINE 5000 UNITS/1 ML VIAL SQ SCH (09:00)
[2023-04-05] MEDS ORDERED: DOCUSATE SODIUM LIQ 100 MG/10 ML UDC PO SCH (09:00)
[2023-04-05] MEDS ORDERED: CEFP200T14 PO (10:21)
[2023-04-05] MEDS ORDERED: AZIT500T PO (10:21)
[2023-04-05] MEDS: IV NS 0.9% 1,000 ML IV SCH (11:06)
[2023-04-05] MEDS ORDERED: DIATR MEGLU/DIATRIZOATE SODIUM 30 ML BOTTLE (GASTROGRAPHIN) ONE (11:16)
== END 2023-04-05 13:32 | DRG 871 ==
LOC: ER 13:31 → MED 18:45 → TELE 20:01
PROVIDERS: ADMIT Internal Medicine; ATTEND Internal Medicine
PROC: 0D20XUZ Change Feeding Device in Upper Intestinal Tract, External Approach (ICD-10-PCS; principal; 2023-04-04)
DX: A41.9 Sepsis, unspecified organism (principal); J18.9 Pneumonia, unspecified organism; K94.23 Gastrostomy malfunction; J96.10 Chronic respiratory failure, unspecified whether with hypoxia or hypercapnia; G93.49 Other encephalopathy; I69.354 Hemiplegia and hemiparesis following cerebral infarction affecting left non-dominant side; E78.5 Hyperlipidemia, unspecified; E11.22 Type 2 diabetes mellitus with diabetic chronic kidney disease; I12.9 Hypertensive chronic kidney disease with stage 1 through stage 4 chronic kidney disease, or unspecified chronic kidney disease; N18.9 Chronic kidney disease, unspecified; R13.10 Dysphagia, unspecified; Z79.4 Long term (current) use of insulin; Z79.82 Long term (current) use of aspirin
CPT/HCPCS: 36415; 71045-TC; 71250-TC; 74018; 80048-TC; 80053-TC; 82962-TC; 83735-TC; 84100-TC; 85025-TC; 85730-TC; 94799-TC; A4223; G0378; J0456; J0692; J1644; J1815; J7030; J7050; J7060; Q9963

== ENCOUNTER 2023-11-04 10:41 | Inpatient (IN) | payer MEDICARE, OTHER ==
[~2023-11-04] VITALS: Ht 165.1 cm; Wt 44.9 kg
[~2023-11-04 10:41] MED LIST changes: +ACET-868 GT; -ACET325T53 PO; -ACET650S11 RC; +AMIN30LI2 GT; +AMLO-212 GT; -AMLO-212 PO; +ASPI-1169 GT; +ATOR40TA GT; -ATOR40TA PO; +AZIT500T PO; -Aspirin Ec PO; -Blood Sugar Diagnostic IN; -CEFE1PIG3 IV; +CEFP200T14 PO; +GLUC1KIT IM; -INSU100V28 SQ; +INSU100V3 SQ; +MENT71OI2 TP; -METR500T PO; -NUT.237L45 NG; +NUT.250L18 GT; +PANT40SU2 GT; -POLY17PO29 PO; +POLY17PO4 GT
[2023-11-04] MEDS ORDERED: Z GUARD REMEDY 4 OZ OINT TP PRN (13:30)
[2023-11-04] MEDS ORDERED: ONDANSETRON HCL/PF 4 MG/2 ML VIAL IVP PRN (13:30)
[2023-11-04 13:45] LABS: BASOPHILS % (AUTO) 0.6 % (0.0-2.0); EOSINOPHILS # (AUTO) 0.1 K/uL (0.0-0.7); EOSINOPHILS % (AUTO) 1.6 % (0.0-6.0); HEMATOCRIT 37 % (33-45); HEMOGLOBIN 12.3 g/dL (11.5-14.8); LYMPHOCYTES # (AUTO) 1.7 K/uL (0.8-4.8); MEAN CORPUSCULAR HEMOGLOBIN 33 PG (26.0-33.0); MEAN CORPUSCULAR HGB CONC 34 g/dl (31.0-36.0); MEAN CORPUSCULAR VOLUME 97 fL (82-100); MONOCYTES # (AUTO) 0.3 K/uL (0.1-1.30); MONOCYTES % (AUTO) 6.9 % (2.0-12.0); NEUTROPHILS # (AUTO) 2.8 K/uL (1.8-8.9); NEUTROPHILS % (AUTO) 56.9 % (43.0-81.0); PLATELET COUNT (AUTO) 239 K/uL (150-450); RED BLOOD CELL COUNT(AUTO) 3.76 MIL/uL (4.0-5.2); RED CELL DISTRIBUTION WIDTH 17.7 % (11.5-15.0); WHITE BLOOD COUNT (AUTO) 4.9 K/uL (4.3-11.0)
[2023-11-04 14:31] LABS: CALCIUM, SERUM 9.6 mg/dL (8.5-10.1); CARBON DIOXIDE 29 mmol/L (21-32); CHLORIDE 97 mmol/L (98-107); CREATININE 0.9 mg/dL (0.6-1.3); GLUCOSE 79 mg/dL (74-106); POTASSIUM 3.4 mmol/L (3.5-5.1); SODIUM SERUM 130 mmol/L (136-145); UREA NITROGEN, BLOOD 29 mg/dL (7-18)
[2023-11-04] MEDS: IV D5/0.45 NACL 1,000 ML IV PRN (15:44)
[2023-11-04] MEDS ORDERED: ONDA4TAB11 SL (16:39)
[2023-11-04] MEDS ORDERED: LORA-258 GT (16:39)
[2023-11-04] MEDS ORDERED: OMEP20CA15 GT (16:39)
[2023-11-04] MEDS ORDERED: IPRA3AMP23 IH (16:39)
[2023-11-04] MEDS ORDERED: DICL100G26 TP (16:39)
[2023-11-04] MEDS ORDERED: INSU100V30 SQ (16:39)
[2023-11-04] MEDS ORDERED: DOCU50LI GT (16:39)
[2023-11-04] MEDS ORDERED: BISA10SU11 RC (16:39)
[2023-11-04] MEDS ORDERED: MULT-213 GT (16:39)
[2023-11-04] MEDS ORDERED: LORA2ORA5 SL (16:39)
[2023-11-04] MEDS ORDERED: NEOM1OIN15 TP (16:39)
[2023-11-04] MEDS ORDERED: ATRO2DRO4 SL (16:39)
[2023-11-04] MEDS ORDERED: [UNRECOGNIZED DRUG - CODE] GT (16:39)
[2023-11-04] MEDS ORDERED: ACET650S11 RC (16:39)
[2023-11-04] MEDS ORDERED: MORP100S3 SL (16:39)
[2023-11-04] MEDS: BLOOD SUGAR DIAGNOSTIC 1 EACH STRIP IN SCH (18:00)
[2023-11-04] MEDS: INSULIN REGULAR, HUMAN 100 UNIT/ML 3 ML VIAL SQ PRN (18:01)
[2023-11-04 19:11] LABS: INR 1.17 (0.91-1.10); PARTIAL THROMBOPLASTIN TIME 34.6 SEC (24.3-34.3); PROTHROMBIN TIME 12.3 SECS (9.2-11.1)
[2023-11-04 20:00] VITALS: BP 153/86; TEMP 97.2; O2SAT 100
[2023-11-04] MEDS ORDERED: POTASSIUM CHLORIDE 20 MEQ TAB.PRT.SR PO ONE (20:00)
[2023-11-04] MEDS: POTASSIUM CL. PREMIX PERIPHER. 50 ML IV SCH (20:56)
[2023-11-05 06:42] LABS: BASOPHILS % (AUTO) 0.5 % (0.0-2.0); EOSINOPHILS # (AUTO) 0.1 K/uL (0.0-0.7); EOSINOPHILS % (AUTO) 1.9 % (0.0-6.0); HEMATOCRIT 33 % (33-45); HEMOGLOBIN 11.3 g/dL (11.5-14.8); LYMPHOCYTES # (AUTO) 1.5 K/uL (0.8-4.8); LYMPHOCYTES % (AUTO) 38.4 % (20.0-44.0); MEAN CORPUSCULAR HEMOGLOBIN 33 PG (26.0-33.0); MEAN CORPUSCULAR HGB CONC 34 g/dl (31.0-36.0); MEAN CORPUSCULAR VOLUME 98 fL (82-100); MONOCYTES # (AUTO) 0.3 K/uL (0.1-1.30); MONOCYTES % (AUTO) 6.4 % (2.0-12.0); NEUTROPHILS # (AUTO) 2.1 K/uL (1.8-8.9); NEUTROPHILS % (AUTO) 52.8 % (43.0-81.0); PLATELET COUNT (AUTO) 219 K/uL (150-450); RED BLOOD CELL COUNT(AUTO) 3.42 MIL/uL (4.0-5.2); RED CELL DISTRIBUTION WIDTH 17.1 % (11.5-15.0)
[2023-11-05 07:22] LABS: CALCIUM, SERUM 9.7 mg/dL (8.5-10.1); CARBON DIOXIDE 28 mmol/L (21-32); CHLORIDE 97 mmol/L (98-107); CREATININE 0.8 mg/dL (0.6-1.3); GLUCOSE 108 mg/dL (74-106); MAGNESIUM 2.2 mg/dL (1.8-2.4); PHOSPHORUS 2.7 mg/dL (2.5-4.9); POTASSIUM 3.8 mmol/L (3.5-5.1); SODIUM SERUM 133 mmol/L (136-145); UREA NITROGEN, BLOOD 26 mg/dL (7-18)
[2023-11-05] MEDS: PANTOPRAZOLE 40 MG VIAL IV SCH (08:06)
[2023-11-05] MEDS: THERAHONEY GEL 1.5 OZ TUBE TP SCH (11:54)
[2023-11-05 16:00] VITALS: BP 140/82; O2SAT 98
[2023-11-05] MEDS: IV D5/ 0.9% NACL 1,000 ML IV PRN (16:30)
[2023-11-05] MEDS ORDERED: FENTANYL PF 100MCG/2ML AMPUL ONE (17:29)
[2023-11-05 20:00] VITALS: BP 130/73; TEMP 98.2; O2SAT 100
[2023-11-06 07:00] VITALS: BP 145/90; O2SAT 98
[2023-11-06] MEDS: DEXTROSE 50%-WATER 50 ML DISP.SYRIN IV PRN (07:10)
[2023-11-06 07:23] LABS: BASOPHILS % (AUTO) 0.7 % (0.0-2.0); EOSINOPHILS # (AUTO) 0.1 K/uL (0.0-0.7); HEMATOCRIT 29 % (33-45); HEMOGLOBIN 9.8 g/dL (11.5-14.8); LYMPHOCYTES # (AUTO) 1.3 K/uL (0.8-4.8); LYMPHOCYTES % (AUTO) 24.8 % (20.0-44.0); MEAN CORPUSCULAR HEMOGLOBIN 33 PG (26.0-33.0); MEAN CORPUSCULAR HGB CONC 33 g/dl (31.0-36.0); MEAN CORPUSCULAR VOLUME 99 fL (82-100); MONOCYTES # (AUTO) 0.3 K/uL (0.1-1.30); MONOCYTES % (AUTO) 6.3 % (2.0-12.0); NEUTROPHILS # (AUTO) 3.6 K/uL (1.8-8.9); NEUTROPHILS % (AUTO) 66.2 % (43.0-81.0); PLATELET COUNT (AUTO) 197 K/uL (150-450); RED BLOOD CELL COUNT(AUTO) 2.97 MIL/uL (4.0-5.2); RED CELL DISTRIBUTION WIDTH 17.3 % (11.5-15.0); WHITE BLOOD COUNT (AUTO) 5.4 K/uL (4.3-11.0)
[2023-11-06 07:48] LABS: ALANINE AMINOTRANSFERASE 19 U/L (12-78); ALBUMIN 2.2 g/dL (3.4-5.0); ALKALINE PHOSPHATASE 102 U/L (46-116); ASPARTATE AMINOTRANSFERASE 22 U/L (15-37); BILIRUBIN,TOTAL 0.3 mg/dL (0.2-1.0); CALCIUM, SERUM 9.2 mg/dL (8.5-10.1); CARBON DIOXIDE 27 mmol/L (21-32); CHLORIDE 104 mmol/L (98-107); CREATININE 0.8 mg/dL (0.6-1.3); GLUCOSE 82 mg/dL (74-106); MAGNESIUM 2.2 mg/dL (1.8-2.4); PHOSPHORUS 2.5 mg/dL (2.5-4.9); POTASSIUM 3.4 mmol/L (3.5-5.1); SODIUM SERUM 138 mmol/L (136-145); TOTAL PROTEIN, SERUM 6.4 g/dL (6.4-8.2); UREA NITROGEN, BLOOD 19 mg/dL (7-18)
[2023-11-06 08:00] LABS: CREATINE KINASE, TOTAL 80 U/L (26-192)
[2023-11-06] MEDS: GLUCERNA 1.2 1,000 ML BOTTLE NG PRN (09:28)
[2023-11-06] MEDS: ARGININE/GLUTAMINE/CALCIUM BMB 1 EACH POWD.PACK GT SCH (09:40)
[2023-11-06] MEDS: POTASSIUM CHLORIDE 20 MEQ TAB.PRT.SR PO ONE (11:38)
[2023-11-07] MEDS ORDERED: PANTOPRAZOLE 40 MG TABLET.DR PO SCH (09:00)
[2023-11-08 13:07] LABS: *SPE A/G RATIO 0.9 (0.7-1.7); *SPE ALBUMIN 2.7 g/dL (2.9-4.4); *SPE ALPHA-1-GLOBULIN 0.3 g/dL (0.0-0.4); *SPE ALPHA-2-GLOBULIN 0.6 g/dL (0.4-1.0); *SPE M-SPIKE Not Observed g/dL (Not Observed); *SPE PROTEIN TOTAL 5.7 g/dL (6.0-8.5); *SPEGAMMA GLOBULIN 1.2 g/dL (0.4-1.8)
== END 2023-11-06 18:14 | disposition hospice, home (50) | DRG 393 ==
LOC: ER 10:46 → MED 14:41
PROC: 0DH63UZ Insertion of Feeding Device into Stomach, Percutaneous Approach (ICD-10-PCS; principal; 2023-11-05)
DX: K94.23 Gastrostomy malfunction (principal); L89.223 Pressure ulcer of left hip, stage 3; E87.1 Hypo-osmolality and hyponatremia; J96.10 Chronic respiratory failure, unspecified whether with hypoxia or hypercapnia; I69.354 Hemiplegia and hemiparesis following cerebral infarction affecting left non-dominant side; G93.49 Other encephalopathy; I12.9 Hypertensive chronic kidney disease with stage 1 through stage 4 chronic kidney disease, or unspecified chronic kidney disease; N18.30 Chronic kidney disease, stage 3 unspecified; E11.22 Type 2 diabetes mellitus with diabetic chronic kidney disease; K29.70 Gastritis, unspecified, without bleeding; Y83.3 Surgical operation with formation of external stoma as the cause of abnormal reaction of the patient, or of later complication, without mention of misadventure at the time of the procedure; Y92.009 Unspecified place in unspecified non-institutional (private) residence as the place of occurrence of the external cause; E87.6 Hypokalemia; M62.50 Muscle wasting and atrophy, not elsewhere classified, unspecified site; R13.10 Dysphagia, unspecified; D64.9 Anemia, unspecified; E86.9 Volume depletion, unspecified; E78.5 Hyperlipidemia, unspecified; L89.156 Pressure-induced deep tissue damage of sacral region; Z79.4 Long term (current) use of insulin; Z79.82 Long term (current) use of aspirin; M89.8X9 Other specified disorders of bone, unspecified site; Z51.5 Encounter for palliative care; Z79.899 Other long term (current) drug therapy; Z82.49 Family history of ischemic heart disease and other diseases of the circulatory system; E86.0 Dehydration
CPT/HCPCS: 36415; 43246; 71045-TC; 74018; 80048-TC; 80053-TC; 82550-TC; 82962-TC; 83735-TC; 83970; 84100-TC; 84155; 84165; 85025-TC; 85730-TC; 97110-TC; 97530-TC; A4223; G0378; J0690; J1815; J2310; J2470; J2704; J3010; J3480; J3490; J7042; J7050